=== PATIENT | male | born 1945 | race Caucasian/White ===

== ENCOUNTER 2017-12-25 20:44 | Inpatient (IN) | payer OTHER ==
--- NOTE | 2017-12-25 20:47 | PDOC ---
History of Present Illness - General History Source: Patient Exam Limitations: No Limitations - History of Present Illness Initial Comments: 12/25/17 21:13 The patient is a 72 year old male, with a significant past medical history of COPD(prescribed Spiriva and Advair, but non compliant) and silent NM, who presents to the emergency department with shortness of breath since yesterday evening. The patient reports associated cough productive of green sputum and wheezing, but denies any fever, chills, rhinorrhea, nasal congestion or sore throat. Patient reports his shortness of breath is worsened with exertion, but states this is part of his baseline. Patient reports he has never had a Nebulizer or needed steroids for his COPD flare ups. Patient denies any chest pain, diaphoresis, or palpitations. He denies any abdominal pain, nausea, or vomiting. He denies any recent travel or sick contacts. Allergies: Levofloxacin Past Surgical History: Social History: Current everyday smoker(50 years). Former ETOH abuse (Quit October 2017). No recreational drug use. PCP: Dr. 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 Ordonez <Abril Rolle - Last Filed: 12/25/17 21:14> <Federica De La Cruz - Last Filed: 12/26/17 04:40> - General Chief Complaint: Shortness of Breath Stated Complaint: SHORT OF BREATH Time Seen by Provider: 12/25/17 20:46 Past History <Abril Rolle - Last Filed: 12/25/17 21:14> <Federica De La Cruz - Last Filed: 12/26/17 04:40> - Past Medical History Allergies/Adverse Reactions: Allergies Allergy/AdvReac Type Severity Reaction Status Date / Time levofloxacin [From Levaquin] Allergy Unknown Verified 12/25/17 20:51 Home Medications: Ambulatory Orders Amlodipine Besylate [Norvasc -] 5 mg PO DAILY 12/25/17 Carvedilol Phosphate [Coreg Cr -] 40 mg PO DAILY 12/25/17 Fluticasone/Salmeterol [Advair 250-50 Diskus] 1 each IH ONCE 12/25/17 Pravastatin Sodium [Pravachol] 40 mg PO DAILY 12/25/17 Tiotropium [place] [Spiriva] 1 inh IH DAILY 12/25/17 Valsartan 320 mg PO DAILY 12/25/17 Review of Systems - Review of Systems Able to Perform ROS?: Yes Comments:: 12/25/17 21:13 CONSTITUTIONAL: Absent: fever, no chills, no fatigue EYES: Absent: visual changes ENT: Absent: ear pain, no sore throat CARDIOVASCULAR: Absent: chest pain, no palpitations RESPIRATORY: Present: cough productive of green sputum, shortness of breath, dyspnea on exertion, wheezing GI: Absent: abdominal pain, no nausea, no vomiting, no constipation, no diarrhea GENITOURINARY: Absent: dysuria, no frequency, no hematuria MUSKULOSKELETAL: Absent: back pain, no arthralgia, no myalgia SKIN: Absent: rash NEURO: Absent: headache <Rolle,Giomilsy - Last Filed: 12/25/17 21:14> *Physical Exam - Vital Signs Last Vital Signs Temp Pulse Resp BP Pulse Ox 98.8 F 105 H 30 H 130/72 88 L 12/25/17 20:45 12/25/17 20:45 12/25/17 20:45 12/25/17 20:45 12/25/17 20:45 - Physical Exam Comments: 12/25/17 21:27 GENERAL: The patient is awake, alert, and fully oriented, in no acute distress. HEAD: Scattered erythema and telangiectasia of bilateral cheeks and nasal surface. No signs of trauma. EYES: Pupils equal, round and reactive to light, extraocular movements intact, sclera anicteric, conjunctiva clear with no pallor. ENT: Ears normal, nares patent, oropharynx clear without exudates. Moist mucous membranes. NECK: Normal range of motion, supple without lymphadenopathy, JVD, or masses. LUNGS :Expiratory wheezing scattered on the left and diffuse on the right, with fine ronchi at the right base. HEART: Regular rate and rhythm, normal S1 and S2 without murmur or rub. ABDOMEN: Soft/nontender/nondistended. BS wnl. No guarding or rebound. No palpable masses. No hepatosplenomegaly. EXTREMITIES: Clubbing and mild cyanosis. Normal range of motion, no edema. No cords, erythema, or tenderness. NEUROLOGICAL: Cranial nerves II through XII grossly intact. Normal speech, normal gait. PSYCH: Normal mood, normal affect. SKIN: Warm, Dry, normal turgor, no rashes or lesions noted. <Rolle,Giomilsy - Last Filed: 12/25/17 21:14> ED Treatment Course - LABORATORY CBC & Chemistry Diagram: 12/25/17 21:15 12/25/17 21:25 <Federica De La Cruz - Last Filed: 12/26/17 04:40> Progress Note - Progress Note Progress Note: Documentation has been prepared under my direction and personally reviewed by me in its entirety. I attest that this documented accurately reflects all work, treatment, procedures and medical decision making performed by me. <Federica De La Cruz - Last Filed: 12/26/17 04:40> Medical Decision Making - Medical Decision Making 12/25/17 22:27 As noted above, this 72-year-old man with a history of COPD but noncompliant with medications and currently still smoking half pack of cigarettes per day presents with 1 day history of cough productive of purulent sputum and increased shortness of breath. Patient also had a history of daily alcohol intake that he stopped 2 months ago on the advice of his PMD (Dr. Kiser) Exam as noted with pulse oximetry of 88% on room air increasing to 92% on 2 L nasal cannula. Workup reveals mild increase in white blood cell count of 12,300 with neutrophil predominance. Patient has mild hyponatremia (noted before by Dr. Kiser according to the patient). BUN is 20 with a creatinine of 1.0. INR is elevated at 1.4. Troponin is borderline high at 0.06 12-lead electrocardiogram shows normal sinus rhythm at 83 beats per minute; intervals, wave forms and axis are all normal. No evidence of acute ST or T- wave abnormalities Portable chest x-ray shows evidence of COPD but no clear infiltrates/effusions/ masses Clinical presentation most consistent with exacerbation of COPD, possible early pneumonia. Patient given DuoNeb treatment, Solu-Medrol 125 mg IV, Rocephin 1 g and azithromycin 500 mg. Patient feels somewhat less short of breath after DuoNeb treatment Patient admitted to [facility] <Federica De La Cruz - Last Filed: 12/26/17 04:40> *DC/Admit/Observation/Transfer - Attestations Scribe Attestion: 12/25/17 21:14 Documentation prepared by Abril Rolle, acting as medical support specialist for Federica De La Cruz MD. <Abril Rolle - Last Filed: 12/25/17 21:14> - Discharge Dispostion Admit: Yes <Federica De La Cruz - Last Filed: 12/26/17 04:40> Diagnosis at time of Disposition: COPD with acute exacerbation - Discharge Dispostion Condition at time of disposition: Fair
[2017-12-25] MEDS ORDERED: ALBUTEROL SO4 2.5/IPRATROPIUM 0.5 INH SOL 3 ML VIAL.NEB. NEB ONE ×3 (21:02→23:35)
[2017-12-25] MEDS ORDERED: methylPREDNISolone NA SUCC 125 MG/2 ML VIAL IVPB ONE (21:43)
[2017-12-25] MEDS ORDERED: methylPREDNISolone NA SUCC 125 MG/2 ML VIAL ONE (21:50)
[2017-12-25 21:51] LABS: MEAN PLT VOLUME 7.7 fl (7.5-11.1); RBC 4.73 M/mm3 (4.00-5.60)
[2017-12-25 21:53] LABS: URINE APPEARANCE Clear; URINE BILIRUBIN 1+ (NEGATIVE); URINE GLUCOSE (UA) Negative (NEGATIVE); URINE KETONE Negative (NEGATIVE); URINE LEUK ESTERASE Negative (NEGATIVE); URINE NITRITE Negative (NEGATIVE)
[2017-12-25 21:58] LABS: URINE BLOOD Trace-intact (NEGATIVE); URINE COLOR YELLOW; URINE PROTEIN 2+ (NEGATIVE)
[2017-12-25 21:58] LABS: BASO % 0.2 % (0-2.0); EOS % 0.1 % (0-4.5); HEMATOCRIT 40.7 % (35.4-49); HEMOGLOBIN 13.6 GM/dl (11.7-16.9); LYMPH % 8.2 % (8-40); MCH 28.7 pg (25.7-33.7); MCHC 33.3 g/dl (32.0-35.9); MEAN CELL VOLUME 86.1 fl (80-96); MONO % 7.2 % (3.8-10.2); NEUT % 84.3 % (42.8-82.8); PLATELET COUNT 188 K/MM3 (134-434); RDW 12.4 % (11.9-15.9); WHITE BLOOD COUNT 12.3 K/mm3 (4.0-10.8)
[2017-12-25 22:01] LABS: INR 1.41 (0.82-1.09); PROTHROMBIN TIME (PATIENT) 15.7 SEC (10.2-13.0)
[2017-12-25 22:04] LABS: ALBUMIN 3.3 g/dl (3.5-5.0); ALK PHOS 51 U/L (32-92); ANION GAP 9 (8-16); BLOOD UREA NITROGEN 20 mg/dl (7-18); CALCIUM 8.4 mg/dl (8.4-10.2); CHLORIDE 92 mmol/L (98-107); CO2 26 mmol/L (22-28); GLUCOSE,RANDOM 96 mg/dl (74-106); POTASSIUM 3.7 mmol/L (3.5-5.1); SGOT/AST 35 U/L (10-42); SGPT/ALT 18 U/L (10-40); SODIUM 127 mmol/L (136-145); TOT PROT 6.8 g/dl (6.4-8.3)
[2017-12-25 22:18] LABS: BILIRUBIN,TOTAL 0.6 mg/dl (0.2-1.0)
[2017-12-25] MEDS ORDERED: CEFTRIAXONE 1 GM in DEXTROSE 5%-WATER - 50 ML IVPB ONE (22:19)
[2017-12-25] MEDS ORDERED: AZITHROMYCIN IVPB 500 MG in DEXTROSE 5%-WATER - 250 ML IVPB ONE (22:21)
[2017-12-25] MEDS ORDERED: cefTRIAXone SODIUM 1 GM VIAL ONE (22:26)
[2017-12-25] MEDS ORDERED: AZITHROMYCIN 500 MG VIAL IVPB ONE (22:26)
[2017-12-25 22:28] LABS: AMORP URATES FEW /hpf (NONE SEEN)
[2017-12-25 22:29] LABS: URINE CASTS FINELY GRANULAR 0-2 /hpf; WHITE BLOOD CELL CAST 0-1 /lpf
[2017-12-25] MEDS ORDERED: ACETAMINOPHEN 500 MG TABLET (FP) PO PRN (23:27)
[2017-12-25] MEDS ORDERED: ONDANSETRON 8 MG TABLET (FP) PO PRN (23:27)
[2017-12-25] MEDS: ALBUTEROL SO4 2.5/IPRATROPIUM 0.5 INH SOL 3 ML VIAL.NEB. NEB SCH (23:35)
--- NOTE | 2017-12-25 23:40 | HP ---
Admitting History and Physical - Admission Chief Complaint: cough, sob History of Present Illness: 72 yo M w hx of copd(non complaint w Rx), "silent Mi", active smoker, etoh abuse , hyponatremia HTN, who presents to the ER for sudden onset of cam, cough x 1 day. he reports progressive worsening of symptoms which prompted er visit. He reports prod cough with greenish sputum. he reports sob w/ exertion. he denies any associated cp, heart palps, nausea, vomiting, diarrhea, chills, fevers, constipation, jaw pain, leg edema. he denies prolonged immobilization. Rest of ros neg except for HPI PMH/PSh: As per HPI social: 1/2 PPD smoker. Former alcohol abuse. Denies recreational drugs Famhx: NM Prob list HTN copd hyponatremia nicotine dependence Leukocytosis a/p- 72 yo M w hx of copd(non complaint w Rx), "silent Mi", active smoker, etoh abuse, hyponatremia HTN, who presents to the ER for sudden onset of cam, cough x 1 day. 1. Sob/ cough, ? COPD exc ddx: PNA/bronchitis/ACS/CHF: CXR w/out evidence of PNA by my eye. EKG no NADEEN/STD, 1st trop 0.06. Started on CTX, and Azithromycin, supp O2 and steroids. Cont nebs/ABX/supp O2 / steroids. Trend trop, cardiac monitoring, obtain BNP, Pulmonary consult. 2. Hyponatremia: Does not appear fluid overloaded on exam Monitor BMP. Check serum/urine osm, TSH. 3. HTN: Cont home meds 4. Leukocytosis possibly stress induced: Monitor CBC 5. Lactic acidosis in setting of probable hypoxia r/t copd exc: Recheck labs. 6. Hypoxia in setting of probable copd exc: ~88% o2 in ER, but improved to 90s after supplemental oxygen via 2L 7. Nicotine dependence: counseled on cessation 8. Hyperlipidemia: Cont Statin DVT prophy scd, oob, lovenox SQ FEN Low sodium diet Dispo- Requires > 2Midnight stay for probable Copd exc History Source: Patient Limitations to Obtaining History: No Limitations - Smoking History Smoking history: Current every day smoker Aproximately how many cigarettes per day: 10 - Alcohol/Substance Use Hx Alcohol Use: Yes Home Medications - Allergies Allergies/Adverse Reactions: Allergies Allergy/AdvReac Type Severity Reaction Status Date / Time levofloxacin [From Levaquin] Allergy Unknown Verified 12/25/17 20:51 - Home Medications Home Medications: Ambulatory Orders Amlodipine Besylate [Norvasc -] 5 mg PO DAILY 12/25/17 Carvedilol Phosphate [Coreg Cr -] 40 mg PO DAILY 12/25/17 Fluticasone/Salmeterol [Advair 250-50 Diskus] 1 each IH ONCE 12/25/17 Pravastatin Sodium [Pravachol] 40 mg PO DAILY 12/25/17 Tiotropium [place] [Spiriva] 1 inh IH DAILY 12/25/17 Valsartan 320 mg PO DAILY 12/25/17 Physical Examination Vital Signs: Vital Signs Temperature 98.8 F 12/25/17 20:45 Pulse Rate 82 12/25/17 21:54 Respiratory Rate 28 H 12/25/17 21:55 Blood Pressure 126/80 12/25/17 21:45 O2 Sat by Pulse Oximetry (%) 93 L 12/25/17 21:55 Constitutional: Yes: Well Nourished, No Distress, Calm. No: Anxious, [place], Cachectic Eyes: Yes: WNL, Conjunctiva Clear, EOM Intact, Cataracts, PERRL, Sclera Icterus HENT: Yes: WNL, Atraumatic, Normocephalic, Nasal Congestion. No: Drooling, Epistaxis Neck: Yes: WNL, Supple, Trachea Midline. No: Lymphadenopathy, Rigid Cardiovascular: Yes: WNL, Regular Rate and Rhythm, S1, S2. No: Bradycardia, Tachycardia Respiratory: Yes: WNL, Regular, CTA Bilaterally, Cough. No: Accessory Muscle Use, Bradypnea, Samir-Adams, Diminished, Dullness Gastrointestinal: Yes: WNL, Normal Bowel Sounds, Soft. No: Abdomen, Obese, Distention, Hematemesis, Hyperactive Bowel Sounds ...Rectal Exam: Yes: Deferred Renal/: Yes: CVA Tenderness - Left Musculoskeletal: No: Back Pain, Joint Stiffness Extremities: No: Amputation, Calf Tenderness, Cold, Cool Edema: No Integumentary: No: Bruising, Erythema, Jaundice Neurological: Yes: WNL, Alert, Oriented, Cran Nerves II-XII Intact. No: Ataxia , Dysarthria, Facial Droop, Lethargy ...Motor Strength: WNL Psychiatric: Yes: WNL, Alert, Oriented. No: Agitated Labs: CBC, BMP 12/25/17 21:15 12/25/17 21:25 Visit type - Emergency Visit Emergency Visit: Yes ED Registration Date: 12/25/17 Care time: The patient presented to the Emergency Department on the above date and was hospitalized for further evaluation of their emergent condition. - New Patient This patient is new to me today: Yes Date on this admission: 12/27/17 - Critical Care Critical Care patient: No Hospitalist Screening - Colonoscopy Questionnaire Colonoscopy Questionnaire: Colonoscopy Questionnaire - Patient: 50 - 75 years old and never had a screening colonoscopy: Yes History of colon or rectal polyps, or CA: Unknown History of IBD, Crohn's disease or UC: No History of abdominal radiation therapy as a child: Unknown - Relative: 1 with colon or rectal CA, or polyps at age 60 or younger: Unknown Colon or rectal CA diagnosed at age 45 or younger: Unknown Multiple relatives with colon or rectal CA: Unknown - Outcome: Screening Result: Positive Screen
[2017-12-26 01:06] VITALS: BMI 18.0
[2017-12-26] MEDS: methylPREDNISolone NA SUCC 40 MG/1 ML VIAL IVPUSH SCH ×2 (02:59→08:17)
[2017-12-26] MEDS: ALBUTEROL SO4 2.5/IPRATROPIUM 0.5 INH SOL 3 ML VIAL.NEB. NEB SCH ×5 (03:00→19:30)
[2017-12-26 08:09] LABS: N-TERMINAL BNP 2846.5 pg/ml (5-125)
[2017-12-26 09:02] LABS: HEMATOCRIT 36.5 % (35.4-49); HEMOGLOBIN 12.4 GM/dl (11.7-16.9); MCH 29.4 pg (25.7-33.7); MCHC 33.9 g/dl (32.0-35.9); MEAN CELL VOLUME 86.7 fl (80-96); MEAN PLT VOLUME 7.5 fl (7.5-11.1); PLATELET COUNT 189 K/MM3 (134-434); RBC 4.21 M/mm3 (4.00-5.60); RDW 12.3 % (11.9-15.9); WHITE BLOOD COUNT 10.8 K/mm3 (4.0-10.8)
[2017-12-26 09:13] LABS: ALBUMIN 2.9 g/dl (3.5-5.0); ALK PHOS 47 U/L (32-92); ANION GAP 7 (8-16); BLOOD UREA NITROGEN 22 mg/dl (7-18); CHLORIDE 95 mmol/L (98-107); CO2 26 mmol/L (22-28); CREATININE 0.8 mg/dl (0.6-1.3); GLUCOSE,RANDOM 131 mg/dl (74-106); POTASSIUM 3.7 mmol/L (3.5-5.1); SGOT/AST 27 U/L (10-42); SGPT/ALT 17 U/L (10-40); SODIUM 128 mmol/L (136-145); TOT PROT 5.8 g/dl (6.4-8.3)
[2017-12-26 09:38] LABS: BILIRUBIN,TOTAL 0.6 mg/dl (0.2-1.0)
[2017-12-26] MEDS ORDERED: AZITHROMYCIN IVPB 500 MG in DEXTROSE 5%-WATER - 250 ML IVPB SCH (10:00)
[2017-12-26] MEDS ORDERED: CEFTRIAXONE 1 GM in DEXTROSE 5%-WATER - 50 ML IVPB SCH (10:00)
--- NOTE | 2017-12-26 10:32 | PN ---
Physical Exam: SUBJECTIVE: Patient seen and examined this morning. He states he is feeling much better then yesterday. He denies SOB, CP. OBJECTIVE: Vital Signs Period Temp Pulse Resp BP Sys/Pepper Pulse Ox Last 24 Hr 97.7 F-98.8 F 78-105 20-30 109-131/60-80 2-96 GENERAL: The patient is awake, alert, and fully oriented, in no acute distress. HEAD: Normal with no signs of trauma. NECK: Trachea midline, full range of motion, supple. LUNGS: Breath sounds equal, course rhonchi when coughing, no wheezes, no crackles, no accessory muscle use. HEART: Regular rate and rhythm, S1, S2 without murmur, rub or gallop. ABDOMEN: Soft, nontender, nondistended, normoactive bowel sounds, no guarding, no rebound, no hepatosplenomegaly, no masses. EXTREMITIES: 2+ pulses, warm, well-perfused, no edema. NEUROLOGICAL: Cranial nerves II through XII grossly intact. Normal speech, gait not observed. PSYCH: Normal mood, normal affect. SKIN: Warm, dry, normal for pt age turgor, no rashes or lesions noted Laboratory Results - last 24 hr 12/25/17 12/25/17 12/25/17 21:15 21:15 21:15 WBC 12.3 H RBC 4.73 Hgb 13.6 Hct 40.7 MCV 86.1 MCH 28.7 MCHC 33.3 RDW 12.4 Plt Count 188 MPV 7.7 Neutrophils % 84.3 H Lymphocytes % 8.2 Monocytes % 7.2 Eosinophils % 0.1 Basophils % 0.2 PT with INR 15.7 H INR 1.41 H Sodium Potassium Chloride Carbon Dioxide Anion Gap BUN Creatinine Creat Clearance w eGFR Random Glucose Serum Osmolality Lactic Acid Calcium Total Bilirubin AST ALT Alkaline Phosphatase Creatine Kinase Troponin I 0.06 B-Natriuretic Peptide Total Protein Albumin Urine Color Urine Appearance Urine pH Ur Specific [place] Urine Protein Urine Glucose (UA) Urine Ketones Urine Blood Urine Nitrite Urine Bilirubin Urine Urobilinogen Ur Leukocyte Esterase Urine RBC Urine WBC Ur Epithelial Cells Amorphous Urates Urine Casts Hyaline Casts WBC Casts 12/25/17 12/25/17 12/25/17 21:15 21:25 21:43 WBC RBC Hgb Hct MCV MCH MCHC RDW Plt Count MPV Neutrophils % Lymphocytes % Monocytes % Eosinophils % Basophils % PT with INR INR Sodium 127 L Potassium 3.7 Chloride 92 L Carbon Dioxide 26 Anion Gap 9 BUN 20 H Creatinine 1.0 Creat Clearance w eGFR > 60 Random Glucose 96 Serum Osmolality Lactic Acid 2.1 H Calcium 8.4 Total Bilirubin 0.6 AST 35 ALT 18 Alkaline Phosphatase 51 Creatine Kinase 117 Troponin I B-Natriuretic Peptide Total Protein 6.8 Albumin 3.3 L Urine Color Yellow Urine Appearance Clear Urine pH 5.0 Ur Specific [place] >= 1.030 H Urine Protein 2+ H Urine Glucose (UA) Negative Urine Ketones Negative Urine Blood Trace-intact H Urine Nitrite Negative Urine Bilirubin 1+ H Urine Urobilinogen 1.0 Ur Leukocyte Esterase Negative Urine RBC 3-5 Urine WBC 4-6 Ur Epithelial Cells 3-5 Amorphous Urates Few Urine Casts Finely granular 0-2 Hyaline Casts 1-3 WBC Casts 0-1 12/26/17 12/26/17 12/26/17 02:45 06:30 07:46 WBC 10.8 RBC 4.21 Hgb 12.4 Hct 36.5 MCV 86.7 MCH 29.4 MCHC 33.9 RDW 12.3 Plt Count 189 MPV 7.5 Neutrophils % No Result Required. Lymphocytes % No Result Required. Monocytes % Eosinophils % Basophils % PT with INR INR Sodium 128 L Potassium 3.7 Chloride 95 L Carbon Dioxide 26 Anion Gap 7 L BUN 22 H Creatinine 0.8 Creat Clearance w eGFR > 60 Random Glucose 131 H D Serum Osmolality 274 L Lactic Acid Calcium 8.0 L Total Bilirubin 0.6 AST 27 D ALT 17 Alkaline Phosphatase 47 Creatine Kinase Troponin I 0.09 H B-Natriuretic Peptide 2846.50 H Total Protein 5.8 L Albumin 2.9 L Urine Color Urine Appearance Urine pH Ur Specific [place] Urine Protein Urine Glucose (UA) Urine Ketones Urine Blood Urine Nitrite Urine Bilirubin Urine Urobilinogen Ur Leukocyte Esterase Urine RBC Urine WBC Ur Epithelial Cells Amorphous Urates Urine Casts Hyaline Casts WBC Casts Active Medications Generic Name Dose Route Start Last Admin Trade Name Freq PRN Reason Stop Dose Admin Acetaminophen 500 mg 12/25/17 23:27 Tylenol - PO Q6H PRN PAIN LEVEL 1-5 Albuterol/Ipratropium 1 amp 12/25/17 23:30 12/26/17 08:17 Duoneb - NEB 1 amp Q4H ALLAN Administration Amlodipine Besylate 5 mg 12/26/17 10:00 Norvasc - PO DAILY ALLAN Atorvastatin Calcium 10 mg 12/26/17 22:00 Lipitor - PO HS ALLAN Carvedilol 40 mg 12/26/17 10:00 Coreg Cr - PO DAILY ALLAN Enoxaparin Sodium 40 mg 12/26/17 10:00 Lovenox - SQ DAILY ALLAN Azithromycin 500 mg/ Dextrose 250 mls @ 250 mls/hr 12/26/17 10:00 IVPB DAILY ALLAN Ceftriaxone Sodium 1 gm/ 50 mls @ 100 mls/hr 12/26/17 10:00 Dextrose IVPB DAILY ALLAN Methylprednisolone Sodium Succinate 40 mg 12/26/17 03:00 12/26/17 08:17 Solu-Medrol - IVPUSH 40 mg Q6H-IV ALLAN Administration Nicotine 21 mg 12/26/17 10:00 Nicoderm Patch - TD DAILY ALLAN Ondansetron HCl 8 mg 12/25/17 23:27 Zofran - PO Q8H PRN NAUSEA Tiotropium [place] 1 puff 12/26/17 10:00 Spiriva - IH DAILY ALLAN Valsartan 320 mg 12/26/17 10:00 Diovan - PO DAILY ALLAN ASSESSMENT/PLAN: This 72 yr old male + daily smoker, with c/o SOB, COPD excerbation upon admission to ER last evening has a finding of elevated trops overnight. 1. COPD -noncompliant with advair and spiriva at home -duonebs while in patient -smoking cessation discussion -nicotine patch ordered -pulse ox check, on 2 liters for sat 88 to 92% -solumedrol tapering -leukocytosis, treating empirically for ? PNA, azithromax, rocephin IV -Pulmonary consult called 2. FEN -low sodium diet -monitor daily labs -lovenox for DVT propx -pepcid for GI protection 3. HTN -continue home meds coreg, diovan, norvasc -monitor BP 4. Elevated troponins -noted elevated trops during cardiac w/u -consult to cardiology called -echo ordered -trend trops -EKG NSR without ST T wave abnormalities 5. Hyponatremia -strict I/O -no diuretics -restrict fluids -daily labs review -urine lytes to be followed Disposition: Inpatient admission for COPD excerbation, cardiac workup, hyponatremia Visit type - Emergency Visit Emergency Visit: Yes ED Registration Date: 12/26/17 Care time: The patient presented to the Emergency Department on the above date and was hospitalized for further evaluation of their emergent condition. - New Patient This patient is new to me today: Yes Date on this admission: 12/26/17 - Critical Care Critical Care patient: No - Discharge Referral Referred to [facility] No
[2017-12-26] MEDS: VALSARTAN 160 MG TABLET (UD) PO SCH (10:40)
[2017-12-26] MEDS: ENOXAPARIN NA (PORCINE) 40 MG/0.4 ML DISP.SYRIN SQ SCH (10:40)
[2017-12-26] MEDS: amLODIPine BESYLATE 5 MG TABLET (FP) PO SCH (10:40)
[2017-12-26] MEDS: NICOTINE 21 MG/24 HOURS TOPICAL PATCH TD SCH (10:41)
[2017-12-26] MEDS: TIOTROPIUM BROMIDE 18 MCG CAPSULES IH SCH (14:20)
[2017-12-26] MEDS: CARVEDILOL PHOSPHATE CR 40 MG CAPSULE (FP) PO SCH (14:20)
--- NOTE | 2017-12-26 16:08 | CON.CARD ---
Consult Consult Specialty:: Cardiology Reason for Consultation:: Positive troponin - History of Present Illness Chief Complaint: COPD Exacerbation History of Present Illness: This is a 72 yea old male with a PMH of COPD. He had a remote ME many years ago. He has a 50n pack year smoking history and continues to smoke. He presented with a severe COPD exacerbation after being non-compliant with medical therapy. His COPD improved with treatment and he was noted to have a minimal elevation of his troponin levels: 0.6, 0.9, 0.5. He has no chest pain. - Alcohol/Substance Use Hx Alcohol Use: Yes - Smoking History Smoking history: Current every day smoker Aproximately how many cigarettes per day: 10 Home Medications - Allergies Allergies/Adverse Reactions: Allergies Allergy/AdvReac Type Severity Reaction Status Date / Time levofloxacin [From Levaquin] Allergy Unknown Verified 12/25/17 20:51 - Home Medications Home Medications: Ambulatory Orders Amlodipine Besylate [Norvasc -] 5 mg PO DAILY 12/25/17 Carvedilol Phosphate [Coreg Cr -] 40 mg PO DAILY 12/25/17 Fluticasone/Salmeterol [Advair 250-50 Diskus] 1 each IH ONCE 12/25/17 Pravastatin Sodium [Pravachol] 40 mg PO DAILY 12/25/17 Tiotropium [place] [Spiriva] 1 inh IH DAILY 12/25/17 Valsartan 320 mg PO DAILY 12/25/17 Review of Systems Findings/Remarks: As per HPI Vital Signs: Vital Signs Temperature 98.2 F 12/26/17 14:16 Pulse Rate 91 H 12/26/17 14:16 Respiratory Rate 18 12/26/17 14:16 Blood Pressure 102/47 12/26/17 14:16 O2 Sat by Pulse Oximetry (%) 96 12/26/17 08:45 Constitutional: Yes: Thin HENT: Yes: WNL Neck: Yes: WNL Respiratory: Yes: Rhonchi (Minimal scattered rhonchi bilaterally) Cardiovascular: Yes: Regular Rate and Rhythm (NL S1S2, no MRHG) JVD: No Carotid Bruit: No Extremities: Yes: WNL Edema: No Neurological: Yes: Alert, Oriented (Non focal) - Other Data Labs, Other Data: CBC, BMP 12/26/17 07:46 12/26/17 06:30 INR, PTT INR 1.41 (0.82-1.09) H 12/25/17 21:15 Troponin, BNP 12/25/17 12/26/17 12/26/17 21:15 02:45 06:30 Troponin I 0.06 0.09 H 0.05 B-Natriuretic Peptide 2846.50 H Troponin, BNP 12/25/17 12/26/17 12/26/17 21:15 02:45 06:30 Troponin I 0.06 0.09 H 0.05 B-Natriuretic Peptide 2846.50 H Assessment/Plan Minimal troponin leak secondary to demand ischemia secondary to his COPD exacerbation. No evidence for an acute coronary syndrome. EKG without acute changes and no chest pain. Would opt for an outpatient stress test when he is over his COPD exacerbation. Would add Aspirin 81 mg to his regimen. Continue statin therapy and beta blockers HE NEEDS TO QUIT SMOKING!!!
[2017-12-26] MEDS: methylPREDNISolone NA SUCC 125 MG/2 ML VIAL IVPB SCH (19:30)
[2017-12-26] MEDS: ATORVASTATIN CA 10 MG TABLET (FP) PO SCH (21:28)
--- NOTE | 2017-12-26 21:59 | EKG ---
Test Reason : Blood Pressure : / mmHG Vent. Rate : 083 BPM Atrial Rate : 083 BPM P-R Int : 148 ms QRS Dur : 096 ms QT Int : 382 ms P-R-T Axes : 048 073 069 degrees QTc Int : 448 ms NORMAL SINUS RHYTHM NORMAL ECG WHEN COMPARED WITH ECG OF 19-AUG-2005 22:21, INCOMPLETE RIGHT BUNDLE BRANCH BLOCK IS NO LONGER PRESENT NONSPECIFIC T WAVE ABNORMALITY NO LONGER EVIDENT IN ANTERIOR LEADS Confirmed by SILVINA URIBE MD ([id number]) on 12/26/2017 9:59:06 PM Referred By: JACE Confirmed By:SILVINA URIBE MD
[2017-12-26 23:07] LABS: PLATELET ESTIMATE ADEQUATE
[2017-12-27] MEDS: methylPREDNISolone NA SUCC 125 MG/2 ML VIAL IVPB SCH ×3 (02:04→17:57)
[2017-12-27] MEDS: ALBUTEROL SO4 2.5/IPRATROPIUM 0.5 INH SOL 3 ML VIAL.NEB. NEB SCH ×3 (02:04→08:19)
[2017-12-27 08:19] LABS: HEMATOCRIT 38.8 % (35.4-49); HEMOGLOBIN 12.9 GM/dl (11.7-16.9); LYMPH % 7.2 % (8-40); MCHC 33.3 g/dl (32.0-35.9); MEAN CELL VOLUME 87.1 fl (80-96); MEAN PLT VOLUME 7.7 fl (7.5-11.1); MONO % 5.2 % (3.8-10.2); NEUT % 87.6 % (42.8-82.8); PLATELET COUNT 200 K/MM3 (134-434); RBC 4.46 M/mm3 (4.00-5.60); RDW 12.4 % (11.9-15.9); WHITE BLOOD COUNT 13.2 K/mm3 (4.0-10.8)
[2017-12-27 08:37] LABS: ALBUMIN 2.9 g/dl (3.5-5.0); ALK PHOS 43 U/L (32-92); ANION GAP 8 (8-16); BILIRUBIN,TOTAL 0.4 mg/dl (0.2-1.0); BLOOD UREA NITROGEN 27 mg/dl (7-18); CALCIUM 8.3 mg/dl (8.4-10.2); CHLORIDE 99 mmol/L (98-107); CO2 26 mmol/L (22-28); CREATININE 0.9 mg/dl (0.6-1.3); GLUCOSE,RANDOM 136 mg/dl (74-106); MAGNESIUM 2.1 mg/dL (1.8-2.4); PHOSPHOROUS 3.7 mg/dl (2.5-4.6); POTASSIUM 3.6 mmol/L (3.5-5.1); SGOT/AST 27 U/L (10-42); SGPT/ALT 16 U/L (10-40); SODIUM 133 mmol/L (136-145); TOT PROT 5.9 g/dl (6.4-8.3)
[2017-12-27] MEDS ORDERED: PT OWN MED DRAWER 7, Y5N ONE ×4 (09:02→21:32)
[2017-12-27] MEDS: AZITHROMYCIN IVPB 250 ML IVPB SCH (09:10)
[2017-12-27] MEDS: CARVEDILOL PHOSPHATE CR 40 MG CAPSULE (FP) PO SCH (09:10)
[2017-12-27] MEDS: CEFTRIAXONE 1 G/50 ML PREMIX 50 ML IVPB SCH (09:10)
[2017-12-27] MEDS: VALSARTAN 160 MG TABLET (UD) PO SCH (09:11)
[2017-12-27] MEDS: amLODIPine BESYLATE 5 MG TABLET (FP) PO SCH (09:11)
[2017-12-27] MEDS: ENOXAPARIN NA (PORCINE) 40 MG/0.4 ML DISP.SYRIN SQ SCH (09:11)
[2017-12-27] MEDS: NICOTINE 21 MG/24 HOURS TOPICAL PATCH TD SCH (09:11)
[2017-12-27] MEDS: TIOTROPIUM BROMIDE 18 MCG CAPSULES IH SCH (09:12)
--- NOTE | 2017-12-27 10:42 | PN ---
Physical Exam: SUBJECTIVE: Patient seen and examined, resting comfortably in bed, moist cough is noted. OBJECTIVE: Patient is a 72 y/o male with a past medical history of copd, hypertension, and tobacco smoker. Patient was admitted from the emergency department for copd exacerbation. Vital Signs Period Temp Pulse Resp BP Sys/Pepper Pulse Ox Last 24 Hr 98.1 F-98.4 F 72-91 18-20 102-114/44-57 95-96 GENERAL: The patient is awake, alert, and fully oriented, in no acute distress. HEAD: Normal with no signs of trauma. EYES: PERRL, extraocular movements intact, sclera anicteric, conjunctiva clear. No ptosis. ENT: Ears normal, nares patent, oropharynx clear without exudates, moist mucous membranes. NECK: Trachea midline, full range of motion, supple. LUNGS: Breath sounds equal, mild inspiratory wheeze to base, clear to apexes, moist cough noted, no crackles, no accessory muscle use. HEART: Regular rate and rhythm, S1, S2 without murmur, rub or gallop. ABDOMEN: Soft, nontender, nondistended, normoactive bowel sounds, no guarding, no rebound, no hepatosplenomegaly, no masses. EXTREMITIES: 2+ pulses, warm, well-perfused, no edema. NEUROLOGICAL: Cranial nerves II through XII grossly intact. Normal speech, gait not observed. PSYCH: Normal mood, normal affect. SKIN: Warm, dry, normal turgor, no rashes or lesions noted Laboratory Results - last 24 hr 12/26/17 12/26/17 12/26/17 06:00 06:30 06:30 WBC RBC Hgb Hct MCV MCH MCHC RDW Plt Count MPV Neutrophils % Neutrophils % (Manual) Band Neutrophils % Lymphocytes % Lymphocytes % (Manual) Monocytes % Eosinophils % Basophils % Platelet Estimate Sodium Potassium Chloride Carbon Dioxide Anion Gap BUN Creatinine Creat Clearance w eGFR Random Glucose Lactic Acid 0.9 Calcium Phosphorus Magnesium Total Bilirubin AST ALT Alkaline Phosphatase Creatine Kinase Troponin I 0.05 Total Protein Albumin TSH 0.44 12/26/17 12/27/17 12/27/17 07:46 07:30 07:30 WBC 13.2 H RBC 4.46 Hgb 12.9 Hct 38.8 MCV 87.1 MCH 29.0 MCHC 33.3 RDW 12.4 Plt Count 200 MPV 7.7 Neutrophils % 87.6 H Neutrophils % (Manual) 89.0 H Band Neutrophils % 8.0 Lymphocytes % 7.2 L Lymphocytes % (Manual) 3.0 L Monocytes % 5.2 Eosinophils % 0.0 D Basophils % 0.0 Platelet Estimate Adequate Sodium 133 L Potassium 3.6 Chloride 99 Carbon Dioxide 26 Anion Gap 8 BUN 27 H D Creatinine 0.9 Creat Clearance w eGFR > 60 Random Glucose 136 H Lactic Acid Calcium 8.3 L Phosphorus 3.7 Magnesium 2.1 Total Bilirubin 0.4 D AST 27 ALT 16 Alkaline Phosphatase 43 Creatine Kinase 86 Troponin I Total Protein 5.9 L Albumin 2.9 L TSH 12/27/17 07:30 WBC RBC Hgb Hct MCV MCH MCHC RDW Plt Count MPV Neutrophils % Neutrophils % (Manual) Band Neutrophils % Lymphocytes % Lymphocytes % (Manual) Monocytes % Eosinophils % Basophils % Platelet Estimate Sodium Potassium Chloride Carbon Dioxide Anion Gap BUN Creatinine Creat Clearance w eGFR Random Glucose Lactic Acid Calcium Phosphorus Magnesium Total Bilirubin AST ALT Alkaline Phosphatase Creatine Kinase Troponin I < 0.03 D Total Protein Albumin TSH Active Medications Generic Name Dose Route Start Last Admin Trade Name Freq PRN Reason Stop Dose Admin Acetaminophen 500 mg 12/25/17 23:27 Tylenol - PO Q6H PRN PAIN LEVEL 1-5 Albuterol/Ipratropium 1 amp 12/25/17 23:30 12/27/17 08:19 Duoneb - NEB 1 amp Q4H ALLAN Administration Amlodipine Besylate 5 mg 12/26/17 10:00 12/27/17 09:11 Norvasc - PO 5 mg DAILY ALLAN Administration Atorvastatin Calcium 10 mg 12/26/17 22:00 12/26/17 21:28 Lipitor - PO 10 mg HS ALLAN Administration Carvedilol 40 mg 12/26/17 10:00 12/27/17 09:10 Coreg Cr - PO 40 mg DAILY ALLAN Administration Enoxaparin Sodium 40 mg 12/26/17 10:00 12/27/17 09:11 Lovenox - SQ 40 mg DAILY ALLAN Administration CEFTRIAXONE 1 G/50 ML PREMIX 50 mls @ 100 mls/hr 12/26/17 12:05 12/27/17 09: 10 Ceftriaxone 1 Gm-D5w Bag IVPB 100 mls/hr DAILY ALLAN Administration Azithromycin 250 mls @ 250 mls/hr 12/26/17 12:08 12/27/17 09:10 Zithromax 500mg Ivpb (Pre-Docked) IVPB 250 mls/hr DAILY ALLAN Administration Methylprednisolone Sodium Succinate 40 mg 12/26/17 19:30 12/27/17 09:11 Solu-Medrol - IVPB 40 mg Q8H-IV ALLAN Administration Nicotine 21 mg 12/26/17 10:00 12/27/17 09:11 Nicoderm Patch - TD 21 mg DAILY ALLAN Administration Ondansetron HCl 8 mg 12/25/17 23:27 Zofran - PO Q8H PRN NAUSEA Tiotropium [place] 1 puff 12/26/17 10:00 12/27/17 09:12 Spiriva - IH 1 each DAILY ALLAN Administration Valsartan 320 mg 12/26/17 10:00 12/27/17 09:11 Diovan - PO 320 mg DAILY ALLAN Administration Microbiology 12/25/17 21:25 Blood - Peripheral Venous Blood Culture - Preliminary NO GROWTH OBTAINED AFTER 24 HOURS, INCUBATION TO CONTINUE FOR 4 DAYS. 12/25/17 21:15 Blood - Peripheral Venous Blood Culture - Preliminary NO GROWTH OBTAINED AFTER 24 HOURS, INCUBATION TO CONTINUE FOR 4 DAYS. IMAGING chest xray: no acute pathology, hyperinflation ct of chest: large lobulated left infrahilar mass strongly suspicous for malignancy, moderately severe copd, thyromegly ASSESSMENT/PLAN: 1. pulm left lung mass - ct of chest, reviewed with patient and son, all questions answered - appreciate oncology input, Dr Srivastava - pending needle biopsy COPD excerbation - continue solumedrol 40mg tid - start symbicort, continue spirva, with prn combivent nebulizers - keep spo2 above 92% with supplemental o2 2) cardiovascular hypertension - continue home meds coreg, diovan, norvasc - b/p at goal elevate troponin - pending echo - cardiology consulted and followed - troponin downtrended FEN hyponatremia - uptrending, close monitoring low sodium diet PPX - lovenox - pepcid - scd/oob Disposition: Inpatient admission Visit type - Emergency Visit Emergency Visit: Yes ED Registration Date: 12/25/17 Care time: The patient presented to the Emergency Department on the above date and was hospitalized for further evaluation of their emergent condition. - New Patient This patient is new to me today: Yes Date on this admission: 12/27/17 - Critical Care Critical Care patient: No - Discharge Referral Referred to [facility] Med P.C.: No
[2017-12-27] MEDS: BUDESONIDE/FORMETEROL FUMARATE 80/4.5 mcg INHALER IH SCH ×2 (11:30→21:37)
[2017-12-27] MEDS: ASPIRIN 81 MG CHEWABLE TABLETS PO SCH (11:38)
[2017-12-27] MEDS ORDERED: methylPREDNISolone NA SUCC 125 MG/2 ML VIAL IVPB SCH ×2 (14:00→19:30)
[2017-12-27] MEDS: ALBUTEROL SO4 2.5/IPRATROPIUM 0.5 INH SOL 3 ML VIAL.NEB. NEB PRN ×2 (17:58→21:36)
--- NOTE | 2017-12-27 18:15 | CON.PULM ---
Consult Consult Specialty:: PULMONARY Referred by:: ARIELLE Reason for Consultation:: COPD/LUNG MASS - History of Present Illness Chief Complaint: COUGH/SOB/MUCOUS PRODUCTION History of Present Illness: The patient is a 72 year old male, with a significant past medical history of COPD(prescribed Spiriva and Advair, but non compliant) and silent ND, who presents to the emergency department with shortness of breath since yesterday evening. The patient reports associated cough productive of green sputum and wheezing, but denies any fever, chills, rhinorrhea, nasal congestion or sore throat or hemoptysis. Patient reports his shortness of breath is worsened with exertion, but states this is part of his baseline. Patient reports he has never had a Nebulizer or needed steroids for his COPD flare ups. Patient denies any chest pain, diaphoresis, or palpitations. He denies any abdominal pain, nausea, or vomiting. He denies any recent travel or sick contacts. 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 He also reports having a normal pet scan in past but can't remember when. His current ct chest reveals a large central hilar mass. The mass was not present on patient's last cat scan dated 2015. Patient did not follow up for 2017. 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 No: O2 Dependent, Pneumonia Gastrointestinal: No: Ascites Hepatobiliary: No: Cirrhosis Renal/: No: Renal Failure Heme/Onc: No: Anemia Infectious Disease: No: AIDS Psych: Yes: Addictions Rheumatology: No: Fibromyalgia ENT: No: Allergic Rhinitis Endocrine: No: Diabetes Mellitus - Past Surgical History Additional Surgical History: no significant previous surgery - Alcohol/Substance Use Hx Alcohol Use: Yes - Smoking History Smoking history: Current every day smoker Have you smoked in the past 12 months: Yes Aproximately how many cigarettes per day: 10 - Social History ADL: Independent Place of : [facility] History of Recent Travel: No Home Medications - Allergies Allergies/Adverse Reactions: Allergies Allergy/AdvReac Type Severity Reaction Status Date / Time levofloxacin [From Levaquin] Allergy Unknown Verified 12/25/17 20:51 - Home Medications Home Medications: Ambulatory Orders Amlodipine Besylate [Norvasc -] 5 mg PO DAILY 12/25/17 Carvedilol Phosphate [Coreg Cr -] 40 mg PO DAILY 12/25/17 Fluticasone/Salmeterol [Advair 250-50 Diskus] 1 each IH ONCE 12/25/17 Pravastatin Sodium [Pravachol] 40 mg PO DAILY 12/25/17 Tiotropium [place] [Spiriva] 1 inh IH DAILY 12/25/17 Valsartan 320 mg PO DAILY 12/25/17 Family Disease History - Family Disease History Family History: Unremarkable Review of Systems - Review of Systems Constitutional: reports: Lethargy, Loss of Appetite, Unintentional Wgt. Loss, Weakness Eyes: denies: Blind Spots HENT: denies: Difficult Swallowing Neck: denies: Decreased ROM Cardiovascular: reports: Shortness of Breath. denies: Chest Pain Respiratory: reports: Cough, Exercise Intolerance, SOB, SOB on Exertion, Wheezing. denies: Hemoptysis Gastrointestinal: denies: Abdominal Pain Genitourinary: denies: Burning Physical Exam Vital Sings: Vital Signs Temperature 98.3 F 12/27/17 14:37 Pulse Rate 79 12/27/17 14:37 Respiratory Rate 19 12/27/17 14:37 Blood Pressure 137/59 12/27/17 14:37 O2 Sat by Pulse Oximetry (%) 93 L 12/27/17 14:37 Constitutional: Yes: Calm, Anxious Eyes: Yes: EOM Intact HENT: Yes: Normocephalic Neck: Yes: Trachea Midline Cardiovascular: Yes: Regular Rate and Rhythm Respiratory: Yes: Diminished ...Clubbing: No Gastrointestinal: Yes: Normal Bowel Sounds, Soft Renal/: No: Bladder Distention Breast(s): Yes: WNL Musculoskeletal: Yes: WNL Extremities: Yes: WNL Edema: No Integumentary: Yes: WNL Neurological: Yes: Alert Labs: CBC, BMP 12/27/17 07:30 12/27/17 07:30 rest reviewed Imaging - Results Chest X-ray: Report Reviewed, Image Reviewed Cat Scan: Report Reviewed, Image Reviewed Problem List - Problems (1) Lung mass Code(s): R91.8 - OTHER NONSPECIFIC ABNORMAL FINDING OF LUNG FIELD (2) HTN (hypertension) Code(s): I10 - ESSENTIAL (PRIMARY) HYPERTENSION (3) Hyperlipidemia Code(s): E78.5 - HYPERLIPIDEMIA, UNSPECIFIED Assessment/Plan LARGE RAPIDLY GROWING CENTRAL MASS FAVORS SMALL CELL LUNG CANCER ACUTE EXACERBATION COPD WITH BRONCHOSPASTIC COMPONENT WILL PRECLUDE A DIAGNOSTIC BIOPSY THIS ADMISSION SUGGEST:STEROIDS/BRONCHODILATORS/ANTIBIOTICS/CHECK PRE/POST AMB SPO2 CAN CONSIDER MRI WITH [facility] WHILE IN HOSPITAL PART OF STAGING W/U ONCE CLINICALLY STABLE WOULD PURSUE DIAGNOSTIC WORKUP OUTPATIENT Brooklynn INGRAM MD
--- NOTE | 2017-12-27 18:59 | CONSULT ---
Consult Consult Specialty:: oncology Referred by:: zack summers Reason for Consultation:: lung mass - History of Present Illness Chief Complaint: sob History of Present Illness: 72 yom w h/o COPD adm w acute onset sob 3d ago. Sxs improving w abx, supplemental O2. Underwent CT showing a L hilar mass. Hx noteworthy for cig smoker approx 75 pack-years and notes he quit during this hospitalization. Notes poor appetite over past 2-3u w approx 15# down. Denies HAs, focal weakness. 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 No: O2 Dependent, Pneumonia Gastrointestinal: No: Ascites Hepatobiliary: No: Cirrhosis Renal/: No: Renal Failure Infectious Disease: No: AIDS Psych: Yes: Addictions Rheumatology: No: Fibromyalgia ENT: No: Allergic Rhinitis Endocrine: No: Diabetes Mellitus - Past Surgical History Additional Surgical History: no significant previous surgery - Alcohol/Substance Use Hx Alcohol Use: Yes - Smoking History Smoking history: Current every day smoker Have you smoked in the past 12 months: Yes Aproximately how many cigarettes per day: 10 - Social History ADL: Independent History of Recent Travel: No Home Medications - Allergies Allergies/Adverse Reactions: Allergies Allergy/AdvReac Type Severity Reaction Status Date / Time levofloxacin [From Levaquin] Allergy Unknown Verified 12/25/17 20:51 - Home Medications Home Medications: Ambulatory Orders Amlodipine Besylate [Norvasc -] 5 mg PO DAILY 12/25/17 Carvedilol Phosphate [Coreg Cr -] 40 mg PO DAILY 12/25/17 Fluticasone/Salmeterol [Advair 250-50 Diskus] 1 each IH ONCE 12/25/17 Pravastatin Sodium [Pravachol] 40 mg PO DAILY 12/25/17 Tiotropium [place] [Spiriva] 1 inh IH DAILY 12/25/17 Valsartan 320 mg PO DAILY 12/25/17 Family Disease History - Family Disease History Family Disease History: CA: Father (lymphoma?), Brother (brain tumor) Review of Systems - Review of Systems Constitutional: reports: Loss of Appetite Respiratory: reports: SOB, SOB on Exertion, Wheezing Gastrointestinal: reports: No Symptoms Neurological: reports: No Symptoms Physical Exam Vital Signs: Vital Signs Temperature 98.3 F 12/27/17 14:37 Pulse Rate 79 12/27/17 14:37 Respiratory Rate 19 12/27/17 14:37 Blood Pressure 137/59 12/27/17 14:37 O2 Sat by Pulse Oximetry (%) 93 L 12/27/17 14:37 Constitutional: Yes: No Distress, Calm Eyes: Yes: WNL HENT: Yes: Atraumatic, Normocephalic Neck: Yes: Supple Cardiovascular: Yes: Regular Rate and Rhythm, Other (dec BS L, R wheezes) Gastrointestinal: Yes: WNL, Normal Bowel Sounds, Soft Musculoskeletal: Yes: WNL Extremities: Yes: WNL Edema: No Integumentary: Yes: WNL Neurological: Yes: WNL, Alert, Oriented ...Motor Strength: WNL Psychiatric: Yes: Alert, Oriented Labs: CBC, BMP 12/27/17 07:30 12/27/17 07:30 Assessment/Plan 72 yom adm w mild hypoxia, COPD exacerbation, and imaging concerning for lung cancer w large L hilar mass would pursue w/u w bx (Dr Lee arranging for bronch as outpt) PET scan MRI brain +/- Pt will f/u in office - info provided
[2017-12-27] MEDS: ATORVASTATIN CA 10 MG TABLET (FP) PO SCH (21:34)
[2017-12-28] MEDS: methylPREDNISolone NA SUCC 125 MG/2 ML VIAL IVPB SCH ×2 (02:17→09:38)
[2017-12-28] MEDS ORDERED: ONDANSETRON 4 MG TABLET PO PRN (08:31)
[2017-12-28 09:06] LABS: ALBUMIN 2.8 g/dl (3.5-5.0); ALK PHOS 47 U/L (32-92); ANION GAP 4 (8-16); BLOOD UREA NITROGEN 21 mg/dl (7-18); CALCIUM 7.8 mg/dl (8.4-10.2); CHLORIDE 96 mmol/L (98-107); CO2 28 mmol/L (22-28); GLUCOSE,RANDOM 123 mg/dl (74-106); HEMATOCRIT 36.7 % (35.4-49); HEMOGLOBIN 12.6 GM/dl (11.7-16.9); MCH 29.9 pg (25.7-33.7); MCHC 34.4 g/dl (32.0-35.9); MEAN CELL VOLUME 86.8 fl (80-96); MEAN PLT VOLUME 7.6 fl (7.5-11.1); PHOSPHOROUS 3.7 mg/dl (2.5-4.6); PLATELET COUNT 195 K/MM3 (134-434); POTASSIUM 3.5 mmol/L (3.5-5.1); RBC 4.23 M/mm3 (4.00-5.60); RDW 12.4 % (11.9-15.9); SGOT/AST 32 U/L (10-42); SGPT/ALT 20 U/L (10-40); SODIUM 128 mmol/L (136-145); TOT PROT 5.8 g/dl (6.4-8.3); WHITE BLOOD COUNT 8.8 K/mm3 (4.0-10.8)
[2017-12-28] MEDS ORDERED: PT OWN MED DRAWER 7, Y5N ONE ×2 (09:25→21:55)
[2017-12-28 09:29] LABS: BILIRUBIN,TOTAL < 0.5 mg/dl (0.2-1.0); CREATININE < 0.8 mg/dl (0.6-1.3)
[2017-12-28] MEDS: TIOTROPIUM BROMIDE 18 MCG CAPSULES IH SCH (09:37)
[2017-12-28] MEDS: CARVEDILOL PHOSPHATE CR 40 MG CAPSULE (FP) PO SCH (09:37)
[2017-12-28] MEDS: BUDESONIDE/FORMETEROL FUMARATE 80/4.5 mcg INHALER IH SCH ×2 (09:37→21:50)
[2017-12-28] MEDS: VALSARTAN 160 MG TABLET (UD) PO SCH (09:38)
[2017-12-28] MEDS: CEFTRIAXONE 1 G/50 ML PREMIX 50 ML IVPB SCH (09:38)
[2017-12-28] MEDS: amLODIPine BESYLATE 5 MG TABLET (FP) PO SCH (09:38)
[2017-12-28] MEDS: ENOXAPARIN NA (PORCINE) 40 MG/0.4 ML DISP.SYRIN SQ SCH (09:39)
[2017-12-28] MEDS: ASPIRIN 81 MG CHEWABLE TABLETS PO SCH (09:40)
[2017-12-28] MEDS: AZITHROMYCIN IVPB 250 ML IVPB SCH (09:40)
[2017-12-28] MEDS: NICOTINE 21 MG/24 HOURS TOPICAL PATCH TD SCH (09:40)
[2017-12-28] MEDS ORDERED: POTASSIUM CHLORIDE TABS 20 MEQ TABLET.ER (FP) PO ONE (10:00)
[2017-12-28] MEDS: methylPREDNISolone NA SUCC 40 MG/1 ML VIAL IVPB SCH ×2 (10:42→17:59)
--- NOTE | 2017-12-28 12:14 | PN ---
Physical Exam: SUBJECTIVE: Patient seen and examined, reports less cough, does report dyspnea upon exertion. OBJECTIVE: Patient is a 72 y/o male with a past medical history of copd, hypertension, and tobacco smoker. Patient was admitted from the emergency department for copd exacerbation with new left lung mass. Vital Signs Period Temp Pulse Resp BP Sys/Pepper Pulse Ox Last 24 Hr 97.6 F-98.8 F 72-90 18-20 131-147/55-73 83-93 GENERAL: The patient is awake, alert, and fully oriented, in no acute distress. HEAD: Normal with no signs of trauma. EYES: PERRL, extraocular movements intact, sclera anicteric, conjunctiva clear. No ptosis. ENT: Ears normal, nares patent, oropharynx clear without exudates, moist mucous membranes. NECK: Trachea midline, full range of motion, supple. LUNGS: Breath sounds equal, clear to auscultation bilaterally, no wheezes, no crackles, no accessory muscle use. HEART: Regular rate and rhythm, S1, S2 without murmur, rub or gallop. ABDOMEN: Soft, nontender, nondistended, normoactive bowel sounds, no guarding, no rebound, no hepatosplenomegaly, no masses. EXTREMITIES: 2+ pulses, warm, well-perfused, no edema. NEUROLOGICAL: Cranial nerves II through XII grossly intact. Normal speech, gait not observed. PSYCH: Normal mood, normal affect. SKIN: Warm, dry, normal turgor, no rashes or lesions noted Laboratory Results - last 24 hr 12/28/17 12/28/17 08:15 08:15 WBC 8.8 D RBC 4.23 Hgb 12.6 Hct 36.7 MCV 86.8 MCH 29.9 MCHC 34.4 RDW 12.4 Plt Count 195 MPV 7.6 Neutrophils % No Result Required. Lymphocytes % No Result Required. Sodium 128 L Potassium 3.5 Chloride 96 L Carbon Dioxide 28 Anion Gap 4 L BUN 21 H D Creatinine < 0.8 Creat Clearance w eGFR > 60 Random Glucose 123 H Calcium 7.8 L Phosphorus 3.7 Magnesium 2.0 Total Bilirubin < 0.5 D AST 32 ALT 20 D Alkaline Phosphatase 47 Total Protein 5.8 L Albumin 2.8 L Active Medications Generic Name Dose Route Start Last Admin Trade Name Freq PRN Reason Stop Dose Admin Acetaminophen 500 mg 12/25/17 23:27 Tylenol - PO Q6H PRN PAIN LEVEL 1-5 Albuterol/Ipratropium 1 amp 12/27/17 11:03 12/27/17 21:36 Duoneb - NEB 1 amp Q6H PRN Administration SHORT OF BREATH/WHEEZING Amlodipine Besylate 5 mg 12/26/17 10:00 12/28/17 09:38 Norvasc - PO 5 mg DAILY ALLAN Administration Aspirin 81 mg 12/27/17 11:00 12/28/17 09:40 Asa - PO Not Given DAILY ALLAN Atorvastatin Calcium 10 mg 12/26/17 22:00 12/27/17 21:34 Lipitor - PO 10 mg HS ALLAN Administration Budesonide/Formoterol Fumarate 2 puff 12/27/17 11:30 12/28/17 09:37 Symbicort 80/4.5mcg - IH 2 inhaler BID ALLAN Administration Carvedilol 40 mg 12/26/17 10:00 12/28/17 09:37 Coreg Cr - PO 40 mg DAILY ALLAN Administration Enoxaparin Sodium 40 mg 12/26/17 10:00 12/28/17 09:39 Lovenox - SQ Not Given DAILY ALLAN CEFTRIAXONE 1 G/50 ML PREMIX 50 mls @ 100 mls/hr 12/26/17 12:05 12/28/17 09: 38 Ceftriaxone 1 Gm-D5w Bag IVPB 100 mls/hr DAILY ALLAN Administration Azithromycin 250 mls @ 250 mls/hr 12/26/17 12:08 12/28/17 09:40 Zithromax 500mg Ivpb (Pre-Docked) IVPB 250 mls/hr DAILY ALLAN Administration Methylprednisolone Sodium Succinate 40 mg 12/28/17 10:45 12/28/17 10:42 Solu-Medrol - IVPB Not Given Q8H-IV ALLAN Nicotine 21 mg 12/26/17 10:00 12/28/17 09:40 Nicoderm Patch - TD 21 mg DAILY ALLAN Administration Ondansetron HCl 8 mg 12/28/17 08:31 Zofran - PO Q8H PRN NAUSEA Tiotropium [place] 1 puff 12/26/17 10:00 12/28/17 09:37 Spiriva - IH 1 each DAILY ALLAN Administration Valsartan 320 mg 12/26/17 10:00 12/28/17 09:38 Diovan - PO 320 mg DAILY ALLAN Administration Microbiology 12/25/17 21:25 Blood - Peripheral Venous Blood Culture - Preliminary NO GROWTH OBTAINED AFTER 48 HOURS, INCUBATION TO CONTINUE FOR 3 DAYS. 12/25/17 21:15 Blood - Peripheral Venous Blood Culture - Preliminary NO GROWTH OBTAINED AFTER 48 HOURS, INCUBATION TO CONTINUE FOR 3 DAYS. IMAGING chest xray: no acute pathology, hyperinflation ct of chest: large lobulated left infrahilar mass strongly suspicous for malignancy, moderately severe copd, thyromegly ASSESSMENT/PLAN: 1. 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 - discussed with Dr Srivastava and Dr Hunt patient will require outpatient follow up for lung biopsy - mri of brain with and without contrast r/o mets - pulmonary and oncology consulted and following COPD excerbation - continue solumedrol 40mg tid, symbicort, spirva, with prn combivent nebulizers - keep spo2 above 92% with supplemental o2 2) cardiovascular hypertension - continue home meds coreg, diovan, norvasc - b/p at goal elevate troponin - echo lv wnl, ef 60-65% - cardiology consulted and followed - troponin downtrended FEN hyponatremia - secondary to lung CA, strict monitoring low sodium diet PPX - lovenox - pepcid - scd/oob Disposition: Inpatient admission Visit type - Emergency Visit Emergency Visit: Yes ED Registration Date: 12/25/17 Care time: The patient presented to the Emergency Department on the above date and was hospitalized for further evaluation of their emergent condition. - New Patient This patient is new to me today: No - Critical Care Critical Care patient: No - Discharge Referral Referred to [facility] Med P.C.: No
[2017-12-28 12:33] LABS: PLATELET ESTIMATE ADEQUATE
--- NOTE | 2017-12-28 14:40 | PN ---
Progress Note (short form) - Note Progress Note: PULMONARY States breathing improving but not at baseline. Still some cough and wheezing. Saturating low 90s on 2L nasal cannula. Last Vital Signs Temp Pulse Resp BP Pulse Ox 98.0 F 68 19 131/60 92 L 12/28/17 14:12 12/28/17 14:12 12/28/17 14:12 12/28/17 14:12 12/28/17 06:41 Gen: NAD at rest Heart: RRR Lung: scattered rhonchi, wheezes Abd: soft, nontender Ext: no edema, +clubbing CBC, BMP 12/28/17 08:15 12/28/17 08:15 Active Medications Acetaminophen (Tylenol -) 500 mg PO Q6H PRN PRN Reason: PAIN LEVEL 1-5 Albuterol/Ipratropium (Duoneb -) 1 amp NEB Q6H PRN PRN Reason: SHORT OF BREATH/WHEEZING Last Admin: 12/27/17 21:36 Dose: 1 amp Amlodipine Besylate (Norvasc -) 5 mg PO DAILY PENDING SALE TO [facility] Last Admin: 12/28/17 09:38 Dose: 5 mg Aspirin (Asa -) 81 mg PO DAILY PENDING S[facility] TO [facility] Last Admin: 12/28/17 09:40 Dose: Not Given Atorvastatin Calcium (Lipitor -) 10 mg PO HS PENDING SALE TO [facility] Last Admin: 12/27/17 21:34 Dose: 10 mg Budesonide/Formoterol Fumarate (Symbicort 80/4.5mcg -) 2 puff IH BID PENDING SALE TO [facility] Last Admin: 12/28/17 09:37 Dose: 2 inhaler Carvedilol (Coreg Cr -) 40 mg PO DAILY PENDING SALE TO [facility] Last Admin: 12/28/17 09:37 Dose: 40 mg Enoxaparin Sodium (Lovenox -) 40 mg SQ DAILY PENDING SALE TO [facility] Last Admin: 12/28/17 09:39 Dose: Not Given CEFTRIAXONE 1 G/50 ML PREMIX (Ceftriaxone 1 Gm-D5w Bag) 50 mls @ 100 mls/hr IVPB DAILY PENDING SALE TO [facility] Last Admin: 12/28/17 09:38 Dose: 100 mls/hr Azithromycin (Zithromax 500mg Ivpb (Pre-Docked)) 250 mls @ 250 mls/hr IVPB DAILY PENDING SALE TO [facility] Last Admin: 12/28/17 09:40 Dose: 250 mls/hr Methylprednisolone Sodium Succinate (Solu-Medrol -) 40 mg IVPB Q8H-IV PENDING SALE TO [facility] Last Admin: 12/28/17 10:42 Dose: Not Given Nicotine (Nicoderm Patch -) 21 mg TD DAILY PENDING S[facility] TO [facility] Last Admin: 12/28/17 09:40 Dose: 21 mg Ondansetron HCl (Zofran -) 8 mg PO Q8H PRN PRN Reason: NAUSEA Tiotropium [place] (Spiriva -) 1 puff IH DAILY PENDING SALE TO [facility] Last Admin: 12/28/17 09:37 Dose: 1 each Valsartan (Diovan -) 320 mg PO DAILY PENDING SALE TO [facility] Last Admin: 12/28/17 09:38 Dose: 320 mg A/P Acute Hypoxic Respiratory Failure Acute COPD Exacerbation Lung Mass HTN +Troponins likely [place] Ischemia Hyponatremia Smoker - continue IV medrol at current dose - inhaled bronchodilators standing and PRN - O2 to keep SpO2 >90%, will need home O2 - monitor sodium level - will need bronchoscopy/biopsy when respiratory status stable, mass too central for CT guided needle biopsy - DVT prophylaxis
[2017-12-28 18:29] LABS: PH,URINE 5.5 (4.5-8); URINE APPEARANCE Clear; URINE BILIRUBIN Negative (NEGATIVE); URINE BLOOD Negative (NEGATIVE); URINE GLUCOSE (UA) Negative (NEGATIVE); URINE KETONE Negative (NEGATIVE); URINE LEUK ESTERASE Negative (NEGATIVE); URINE NITRITE Negative (NEGATIVE); URINE PROTEIN Trace (NEGATIVE); URINE UROBILINOGEN 0.2 (0.2-1.0)
[2017-12-28 18:30] LABS: URINE COLOR YELLOW
[2017-12-28] MEDS: ALBUTEROL SO4 2.5/IPRATROPIUM 0.5 INH SOL 3 ML VIAL.NEB. NEB PRN (21:50)
[2017-12-28] MEDS: ATORVASTATIN CA 10 MG TABLET (FP) PO SCH (21:50)
[2017-12-29] MEDS: methylPREDNISolone NA SUCC 40 MG/1 ML VIAL IVPB SCH ×3 (01:39→18:04)
--- NOTE | 2017-12-29 02:01 | HOSP ---
Subjective - Review of Symptoms Events since last encounter: Pt noted with 28 beat episode wide complex tachycardia on monitor Subjective: Pt with no complaints. was sleeping during event and slept through entire event. Upon awakening pt he denies chest pain, palpitations, SOB. Physical Examination Vital Signs: Vital Signs Temperature 98.5 F 12/28/17 22:00 Pulse Rate 77 12/28/17 22:00 Respiratory Rate 19 12/28/17 22:00 Blood Pressure 154/71 12/28/17 22:00 O2 Sat by Pulse Oximetry (%) 91 L 12/28/17 22:00 Constitutional: Yes: No Distress, Calm Cardiovascular: Yes: Regular Rate and Rhythm, S1, S2 Respiratory: Yes: CTA Bilaterally Gastrointestinal: Yes: Normal Bowel Sounds, Soft. No: Tenderness, Rebound Labs: CBC, BMP 12/28/17 08:15 12/28/17 08:15 Hospitalist Encounter Assessment: Wide complex tachycardia, unknown etiology - 12 lead ECG ordered - CBc, BMP, mag, phos, cardiac profile stat - cardiology to f/u in am. ECG 0203 sinus rhythm with premature Supraventricular complexes, no acute ST/T changes Vent rate 75, QTC 453
[2017-12-29 03:04] LABS: HEMATOCRIT 35.4 % (35.4-49); MCH 29.3 pg (25.7-33.7); MCHC 33.8 g/dl (32.0-35.9); MEAN CELL VOLUME 86.9 fl (80-96); RBC 4.08 M/mm3 (4.00-5.60); WHITE BLOOD COUNT 7.2 K/mm3 (4.0-10.8)
[2017-12-29 03:05] LABS: NEUT % 76.2 % (42.8-82.8); PLATELET COUNT 178 K/MM3 (134-434); RDW 13.2 % (11.9-15.9)
[2017-12-29 03:06] LABS: LYMPH % 16.9 % (8-40); MONO % 6.9 % (3.8-10.2)
[2017-12-29 03:44] LABS: ANION GAP 11 (8-16); BLOOD UREA NITROGEN 19 mg/dL (7-18); CALCIUM 7.6 mg/dL (8.5-10.1); CHLORIDE 96 mmol/L (98-107); CO2 28 mmol/L (21-32); CREATININE 0.7 mg/dL (0.7-1.3); GLUCOSE,RANDOM 121 mg/dL (74-106); MAGNESIUM 2.4 mg/dL (1.8-2.4); PHOSPHOROUS 3.2 mg/dL (2.5-4.9); POTASSIUM 3.9 mmol/L (3.5-5.1); SODIUM 135 mmol/L (136-145)
[2017-12-29 09:08] LABS: HEMATOCRIT 35.4 % (35.4-49); HEMOGLOBIN 12.2 GM/dl (11.7-16.9); LYMPH % 15.9 % (8-40); MCH 29.9 pg (25.7-33.7); MCHC 34.5 g/dl (32.0-35.9); MEAN CELL VOLUME 86.6 fl (80-96); MEAN PLT VOLUME 7.5 fl (7.5-11.1); MONO % 5.7 % (3.8-10.2); NEUT % 78.4 % (42.8-82.8); PLATELET COUNT 175 K/MM3 (134-434); RBC 4.09 M/mm3 (4.00-5.60); RDW 12.3 % (11.9-15.9); WHITE BLOOD COUNT 6.6 K/mm3 (4.0-10.8)
[2017-12-29 09:24] LABS: ANION GAP 7 (8-16); BLOOD UREA NITROGEN 19 mg/dl (7-18); CALCIUM 7.7 mg/dl (8.4-10.2); CHLORIDE 96 mmol/L (98-107); CO2 28 mmol/L (22-28); CREATININE 0.6 mg/dl (0.6-1.3); GLUCOSE,RANDOM 117 mg/dl (74-106); MAGNESIUM 2.1 mg/dL (1.8-2.4); PHOSPHOROUS 3.5 mg/dl (2.5-4.6); POTASSIUM 3.9 mmol/L (3.5-5.1); SODIUM 131 mmol/L (136-145)
[2017-12-29] MEDS ORDERED: PT OWN MED DRAWER 7, Y5N ONE ×2 (09:53→22:03)
[2017-12-29] MEDS: ASPIRIN 81 MG CHEWABLE TABLETS PO SCH (10:14)
[2017-12-29] MEDS: amLODIPine BESYLATE 5 MG TABLET (FP) PO SCH (10:15)
[2017-12-29] MEDS: CEFTRIAXONE 1 G/50 ML PREMIX 50 ML IVPB SCH (10:15)
[2017-12-29] MEDS: TIOTROPIUM BROMIDE 18 MCG CAPSULES IH SCH (10:15)
[2017-12-29] MEDS: BUDESONIDE/FORMETEROL FUMARATE 80/4.5 mcg INHALER IH SCH ×2 (10:15→22:12)
[2017-12-29] MEDS: VALSARTAN 160 MG TABLET (UD) PO SCH (10:16)
[2017-12-29] MEDS: ENOXAPARIN NA (PORCINE) 40 MG/0.4 ML DISP.SYRIN SQ SCH (10:17)
[2017-12-29] MEDS: CARVEDILOL PHOSPHATE CR 40 MG CAPSULE (FP) PO SCH (10:17)
[2017-12-29] MEDS: NICOTINE 21 MG/24 HOURS TOPICAL PATCH TD SCH (10:17)
--- NOTE | 2017-12-29 10:51 | EKG ---
Test Reason : Blood Pressure : / mmHG Vent. Rate : 075 BPM Atrial Rate : 075 BPM P-R Int : 140 ms QRS Dur : 082 ms QT Int : 406 ms P-R-T Axes : 031 075 074 degrees QTc Int : 453 ms SINUS RHYTHM WITH PREMATURE SUPRAVENTRICULAR COMPLEXES SEPTAL INFARCT , AGE UNDETERMINED ABNORMAL ECG WHEN COMPARED WITH ECG OF 26-DEC-2017 08:10, PREMATURE SUPRAVENTRICULAR COMPLEXES ARE NOW PRESENT SEPTAL INFARCT IS NOW PRESENT Confirmed by MARGAUX MICHAELS, JED ([id number]) on 12/29/2017 10:51:22 AM Referred By: WELLINGTON GUDINO Confirmed By:JED DAMICO MD
--- NOTE | 2017-12-29 13:09 | PN ---
Physical Exam: SUBJECTIVE: Patient seen and examined, ambulatory at bedside, reports feeling well, denies any chest pain or shortness of breath. OBJECTIVE:Patient is a 72 y/o male with a past medical history of copd, hypertension, and tobacco smoker. Patient was admitted from the emergency department for copd exacerbation with new left lung mass. Vital Signs Period Temp Pulse Resp BP Sys/Pepper Pulse Ox Last 24 Hr 97.3 F-98.7 F 67-77 16-19 131-154/60-83 91-94 GENERAL: The patient is awake, alert, and fully oriented, in no acute distress. HEAD: Normal with no signs of trauma. EYES: PERRL, extraocular movements intact, sclera anicteric, conjunctiva clear. No ptosis. ENT: Ears normal, nares patent, oropharynx clear without exudates, moist mucous membranes. NECK: Trachea midline, full range of motion, supple. LUNGS: Breath sounds equal, clear to auscultation bilaterally to apexes, diminished to base, moist cough noted, no wheezes, no crackles, no accessory muscle use. HEART: Regular rate and rhythm, S1, S2 without murmur, rub or gallop. ABDOMEN: Soft, nontender, nondistended, normoactive bowel sounds, no guarding, no rebound, no hepatosplenomegaly, no masses. EXTREMITIES: 2+ pulses, warm, well-perfused, no edema. NEUROLOGICAL: Cranial nerves II through XII grossly intact. Normal speech, gait not observed. PSYCH: Normal mood, normal affect. SKIN: Warm, dry, normal turgor, no rashes or lesions noted Laboratory Results - last 24 hr 12/28/17 12/28/17 12/28/17 18:15 18:15 18:15 WBC RBC Hgb Hct MCV MCH MCHC RDW Plt Count MPV Neutrophils % Lymphocytes % Monocytes % Eosinophils % Basophils % Sodium Potassium Chloride Carbon Dioxide Anion Gap BUN Creatinine POC Glucometer Random Glucose Calcium Phosphorus Magnesium Creatine Kinase Troponin I Urine Color Yellow Urine Appearance Clear Urine pH 5.5 Ur Specific [place] 1.025 Urine Protein Trace Urine Glucose (UA) Negative Urine Ketones Negative Urine Blood Negative Urine Nitrite Negative Urine Bilirubin Negative Urine Urobilinogen 0.2 Ur Leukocyte Esterase Negative Urine Osmolality 863 Ur Random Sodium 46 12/29/17 12/29/17 12/29/17 01:54 01:54 06:30 WBC 7.2 RBC 4.08 Hgb 12.0 Hct 35.4 MCV 86.9 MCH 29.3 MCHC 33.8 RDW 13.2 Plt Count 178 MPV 8.0 Neutrophils % 76.2 Lymphocytes % 16.9 D Monocytes % 6.9 Eosinophils % 0.0 Basophils % 0.0 Sodium 135 L Potassium 3.9 Chloride 96 L Carbon Dioxide 28 Anion Gap 11 BUN 19 H Creatinine 0.7 POC Glucometer 201 Random Glucose 121 H Calcium 7.6 L Phosphorus 3.2 Magnesium 2.4 Creatine Kinase 55 Troponin I < 0.02 D Urine Color Urine Appearance Urine pH Ur Specific [place] Urine Protein Urine Glucose (UA) Urine Ketones Urine Blood Urine Nitrite Urine Bilirubin Urine Urobilinogen Ur Leukocyte Esterase Urine Osmolality Ur Random Sodium 12/29/17 12/29/17 08:30 08:30 WBC 6.6 RBC 4.09 Hgb 12.2 Hct 35.4 MCV 86.6 MCH 29.9 MCHC 34.5 RDW 12.3 Plt Count 175 MPV 7.5 Neutrophils % 78.4 Lymphocytes % 15.9 Monocytes % 5.7 Eosinophils % 0.0 Basophils % 0.0 Sodium 131 L Potassium 3.9 Chloride 96 L Carbon Dioxide 28 Anion Gap 7 L BUN 19 H Creatinine 0.6 D POC Glucometer Random Glucose 117 H Calcium 7.7 L Phosphorus 3.5 Magnesium 2.1 Creatine Kinase Troponin I Urine Color Urine Appearance Urine pH Ur Specific [place] Urine Protein Urine Glucose (UA) Urine Ketones Urine Blood Urine Nitrite Urine Bilirubin Urine Urobilinogen Ur Leukocyte Esterase Urine Osmolality Ur Random Sodium Active Medications Generic Name Dose Route Start Last Admin Trade Name Pihq PRN Reason Stop Dose Admin Acetaminophen 500 mg 12/25/17 23:27 Tylenol - PO Q6H PRN PAIN LEVEL 1-5 Albuterol/Ipratropium 1 amp 12/27/17 11:03 12/28/17 21:50 Duoneb - NEB 1 amp Q6H PRN Administration SHORT OF BREATH/WHEEZING Amlodipine Besylate 5 mg 12/26/17 10:00 12/29/17 10:15 Norvasc - PO 5 mg DAILY ALLAN Administration Aspirin 81 mg 12/27/17 11:00 12/29/17 10:14 Asa - PO Not Given DAILY [facility] Atorvastatin Calcium 10 mg 12/26/17 22:00 12/28/17 21:50 Lipitor - PO 10 mg HS ALLAN Administration Budesonide/Formoterol Fumarate 2 puff 12/27/17 11:30 12/29/17 10:15 Symbicort 80/4.5mcg - IH 2 inhaler BID ALLAN Administration Carvedilol 40 mg 12/26/17 10:00 12/29/17 10:17 Coreg Cr - PO 40 mg DAILY ALLAN Administration Enoxaparin Sodium 40 mg 12/26/17 10:00 12/29/17 10:17 Lovenox - SQ Not Given DAILY [facility] CEFTRIAXONE 1 G/50 ML PREMIX 50 mls @ 100 mls/hr 12/26/17 12:05 12/29/17 10: 15 Ceftriaxone 1 Gm-D5w Bag IVPB 100 mls/hr DAILY ALLAN Administration Methylprednisolone Sodium Succinate 40 mg 12/28/17 10:45 12/29/17 10:16 Solu-Medrol - IVPB 40 mg Q8H-IV ALLAN Administration Nicotine 21 mg 12/26/17 10:00 12/29/17 10:17 Nicoderm Patch - TD 21 mg DAILY ALLAN Administration Ondansetron HCl 8 mg 12/28/17 08:31 Zofran - PO Q8H PRN NAUSEA Tiotropium [place] 1 puff 12/26/17 10:00 12/29/17 10:15 Spiriva - IH 1 puff DAILY ALLAN Administration Valsartan 320 mg 12/26/17 10:00 12/29/17 10:16 Diovan - PO 320 mg DAILY ALLAN Administration Microbiology 12/25/17 21:25 Blood - Peripheral Venous Blood Culture - Preliminary NO GROWTH OBTAINED AFTER 72 HOURS, INCUBATION TO CONTINUE FOR 2 DAYS. 12/25/17 21:15 Blood - Peripheral Venous Blood Culture - Preliminary NO GROWTH OBTAINED AFTER 72 HOURS, INCUBATION TO CONTINUE FOR 2 DAYS. IMAGING chest xray: no acute pathology, hyperinflation ct of chest: large lobulated left infrahilar mass strongly suspicous for malignancy, moderately severe copd, thyromegly ASSESSMENT/PLAN: 1. 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 - discussed with Dr Srivastava and Dr Hunt patient will require outpatient follow up for lung biopsy - mri of brain with and without contrast r/o mets pending final report today - pulmonary and oncology consulted and following COPD excerbation - continue solumedrol 40mg tid, symbicort, spirva, with prn combivent nebulizers - keep spo2 above 92% with supplemental o2 2) cardiovascular hypertension - continue home meds coreg, diovan, norvasc - b/p at goal wide complex tachycardia - 23 beat run noted on telemetry this AM, patient remained asymptomatic, discussed with Dr Rhodes (cardiology) advised continue coreg and norvasc with monitorin elevate troponin - echo lv wnl, ef 60-65% - cardiology consulted and followed - troponin downtrended FEN hyponatremia - secondary to lung CA, strict monitoring low sodium diet PPX - lovenox - pepcid - scd/oob Disposition: Inpatient admission Visit type - Emergency Visit Emergency Visit: Yes ED Registration Date: 12/25/17 Care time: The patient presented to the Emergency Department on the above date and was hospitalized for further evaluation of their emergent condition. - New Patient This patient is new to me today: No - Critical Care Critical Care patient: No - Discharge Referral Referred to [facility] No
--- NOTE | 2017-12-29 13:25 | PN ---
Progress Note (short form) - Note Progress Note: PULMONARY REMAINS WITH CONGESTED COUGH AND SOB HAD 12 BEAT WIDE COMPLEX RUN LAST NIGHT VSS/AFEBRILE ANICTERIC B/L DISTANT SOUNDS WITH SCATTERED RHONCHI S1S2 NSR BS+ NO EDEMA LABS/MEDS/IMAGES/NOTES REVIEWED Acute Hypoxic Respiratory Failure Acute COPD Exacerbation Lung Mass likely malignant HTN +Troponins likely Demand Ischemia/12 beat run wide complex tachycardia Hyponatremia Active Smoker - continue IV medrol at current dose - inhaled bronchodilators standing and PRN - O2 to keep SpO2 >90%, will need home O2 - monitor sodium level - will need bronchoscopy/biopsy when respiratory status stable, mass too central for CT guided needle biopsy - DVT prophylaxis Brooklynn INGRAM MD Problem List - Problems (1) Lung mass Code(s): R91.8 - OTHER NONSPECIFIC ABNORMAL FINDING OF LUNG FIELD (2) HTN (hypertension) Code(s): I10 - ESSENTIAL (PRIMARY) HYPERTENSION (3) Hyperlipidemia Code(s): E78.5 - HYPERLIPIDEMIA, UNSPECIFIED
[2017-12-29] MEDS ORDERED: ALBUTEROL SO4 2.5/IPRATROPIUM 0.5 INH SOL 3 ML VIAL.NEB. NEB ONE (13:45)
[2017-12-29] MEDS: ATORVASTATIN CA 10 MG TABLET (FP) PO SCH (22:12)
[2017-12-30] MEDS: methylPREDNISolone NA SUCC 40 MG/1 ML VIAL IVPB SCH ×2 (02:48→09:57)
[2017-12-30] MEDS: ASPIRIN 81 MG CHEWABLE TABLETS PO SCH (09:55)
[2017-12-30] MEDS: CEFTRIAXONE 1 G/50 ML PREMIX 50 ML IVPB SCH (09:55)
[2017-12-30] MEDS: VALSARTAN 160 MG TABLET (UD) PO SCH (09:56)
[2017-12-30] MEDS: ENOXAPARIN NA (PORCINE) 40 MG/0.4 ML DISP.SYRIN SQ SCH (09:56)
[2017-12-30] MEDS: amLODIPine BESYLATE 5 MG TABLET (FP) PO SCH (09:56)
[2017-12-30] MEDS: NICOTINE 21 MG/24 HOURS TOPICAL PATCH TD SCH (09:56)
[2017-12-30] MEDS: BUDESONIDE/FORMETEROL FUMARATE 80/4.5 mcg INHALER IH SCH ×2 (09:57→21:52)
[2017-12-30] MEDS: TIOTROPIUM BROMIDE 18 MCG CAPSULES IH SCH (09:57)
--- NOTE | 2017-12-30 10:06 | PN ---
Progress Note, Physician History of Present Illness: PULMONARY ALERT,FEELING BETTET,LESS DYSPNEIC,+COUGH - Current Medication List Current Medications: Active Medications Acetaminophen (Tylenol -) 500 mg PO Q6H PRN PRN Reason: PAIN LEVEL 1-5 Albuterol/Ipratropium (Duoneb -) 1 amp NEB Q6H PRN PRN Reason: SHORT OF BREATH/WHEEZING Last Admin: 12/28/17 21:50 Dose: 1 amp Amlodipine Besylate (Norvasc -) 5 mg PO DAILY [facility] Last Admin: 12/30/17 09:56 Dose: 5 mg Aspirin (Asa -) 81 mg PO DAILY [facility] Last Admin: 12/30/17 09:55 Dose: 81 mg Atorvastatin Calcium (Lipitor -) 10 mg PO HS [facility] Last Admin: 12/29/17 22:12 Dose: 10 mg Budesonide/Formoterol Fumarate (Symbicort 80/4.5mcg -) 2 puff IH BID [facility] Last Admin: 12/30/17 09:57 Dose: 2 inhaler Carvedilol (Coreg Cr -) 40 mg PO DAILY [facility] Last Admin: 12/29/17 10:17 Dose: 40 mg Enoxaparin Sodium (Lovenox -) 40 mg SQ DAILY [facility] Last Admin: 12/30/17 09:56 Dose: 40 mg CEFTRIAXONE 1 G/50 ML PREMIX (Ceftriaxone 1 Gm-D5w Bag) 50 mls @ 100 mls/hr IVPB DAILY [facility] Last Admin: 12/30/17 09:55 Dose: 100 mls/hr Methylprednisolone Sodium Succinate (Solu-Medrol -) 40 mg IVPB Q8H-IV [facility] Last Admin: 12/30/17 09:57 Dose: 40 mg Multivitamins/Minerals/Vitamin C (Tab-A-Vit -) 1 tab PO DAILY [facility] Nicotine (Nicoderm Patch -) 21 mg TD DAILY [facility] Last Admin: 12/30/17 09:56 Dose: 21 mg Ondansetron HCl (Zofran -) 8 mg PO Q8H PRN PRN Reason: NAUSEA Tiotropium [place] (Spiriva -) 1 puff IH DAILY [facility] Last Admin: 12/30/17 09:57 Dose: 1 puff Valsartan (Diovan -) 320 mg PO DAILY [facility] Last Admin: 12/30/17 09:56 Dose: 320 mg - Objective Vital Signs: Vital Signs Temperature 98.1 F 12/30/17 06:00 Pulse Rate 64 12/30/17 06:00 Respiratory Rate 19 12/30/17 06:00 Blood Pressure 159/69 12/30/17 06:00 O2 Sat by Pulse Oximetry (%) 95 12/30/17 08:49 Constitutional: Yes: Well Nourished, Calm Eyes: Yes: WNL HENT: Yes: WNL Neck: Yes: WNL Cardiovascular: Yes: Regular Rate and Rhythm, S1, S2 Respiratory: Yes: Wheezes (SCATTERED ERIN WHEEZES) Gastrointestinal: Yes: Normal Bowel Sounds, Soft Extremities: Yes: WNL Edema: No Labs: CBC, BMP Problem List - Problems (1) COPD with acute exacerbation Code(s): J44.1 - CHRONIC OBSTRUCTIVE PULMONARY DISEASE W (ACUTE) EXACERBATION (2) HTN (hypertension) Code(s): I10 - ESSENTIAL (PRIMARY) HYPERTENSION (3) Hyperlipidemia Code(s): E78.5 - HYPERLIPIDEMIA, UNSPECIFIED (4) Lung mass Code(s): R91.8 - OTHER NONSPECIFIC ABNORMAL FINDING OF LUNG FIELD Assessment/Plan Problem List - Problems (1) Lung mass Code(s): R91.8 - OTHER NONSPECIFIC ABNORMAL FINDING OF LUNG FIELD (2) HTN (hypertension) Code(s): I10 - ESSENTIAL (PRIMARY) HYPERTENSION (3) Hyperlipidemia Code(s): E78.5 - HYPERLIPIDEMIA, UNSPECIFIED Assessment/Plan LARGE RAPIDLY GROWING CENTRAL MASS FAVORS SMALL CELL LUNG CANCER ACUTE EXACERBATION COPD WITH BRONCHOSPASTIC COMPONENT SUGGEST:STEROIDS SAME DOSE BRONCHODILATORS/ANTIBIOTICS CHECK PRE/POST AMB SPO2 ONCE CLINICALLY STABLE WOULD PURSUE DIAGNOSTIC WORKUP OUTPATIENT DR RYAN
[2017-12-30] MEDS: CARVEDILOL PHOSPHATE CR 40 MG CAPSULE (FP) PO SCH (10:15)
[2017-12-30] MEDS: MULTIVITAMINS (DAILY MVI) TABLET (FP) PO SCH (10:16)
--- NOTE | 2017-12-30 12:56 | PN ---
Physical Exam: SUBJECTIVE: Patient seen and examined, reports ongoing cough with dyspnea upon exertion OBJECTIVE:Patient is a 72 y/o male with a past medical history of copd, hypertension, and tobacco smoker. Patient was admitted from the emergency department for copd exacerbation with new left lung mass. Vital Signs Period Temp Pulse Resp BP Sys/Pepper Pulse Ox Last 24 Hr 98.0 F-98.6 F 64-81 19-20 138-159/63-79 91-95 GENERAL: The patient is awake, alert, and fully oriented, in no acute distress. HEAD: Normal with no signs of trauma. EYES: PERRL, extraocular movements intact, sclera anicteric, conjunctiva clear. No ptosis. ENT: Ears normal, nares patent, oropharynx clear without exudates, moist mucous membranes. NECK: Trachea midline, full range of motion, supple. LUNGS: Breath sounds equal, clear to auscultation bilaterally, no wheezes, no crackles, no accessory muscle use. HEART: Regular rate and rhythm, S1, S2 without murmur, rub or gallop. ABDOMEN: Soft, nontender, nondistended, normoactive bowel sounds, no guarding, no rebound, no hepatosplenomegaly, no masses. EXTREMITIES: 2+ pulses, warm, well-perfused, no edema. NEUROLOGICAL: Cranial nerves II through XII grossly intact. Normal speech, gait not observed. PSYCH: Normal mood, normal affect. SKIN: Warm, dry, normal turgor, no rashes or lesions noted Active Medications Generic Name Dose Route Start Last Admin Trade Name Freq PRN Reason Stop Dose Admin Acetaminophen 500 mg 12/25/17 23:27 Tylenol - PO Q6H PRN PAIN LEVEL 1-5 Albuterol/Ipratropium 1 amp 12/27/17 11:03 12/28/17 21:50 Duoneb - NEB 1 amp Q6H PRN Administration SHORT OF BREATH/WHEEZING Amlodipine Besylate 5 mg 12/26/17 10:00 12/30/17 09:56 Norvasc - PO 5 mg DAILY ALLAN Administration Aspirin 81 mg 12/27/17 11:00 12/30/17 09:55 Asa - PO 81 mg DAILY ALLAN Administration Atorvastatin Calcium 10 mg 12/26/17 22:00 12/29/17 22:12 Lipitor - PO 10 mg HS ALLAN Administration Budesonide/Formoterol Fumarate 2 puff 12/27/17 11:30 12/30/17 09:57 Symbicort 80/4.5mcg - IH 2 inhaler BID ALLAN Administration Carvedilol 40 mg 12/26/17 10:00 12/29/17 10:17 Coreg Cr - PO 40 mg DAILY ALLAN Administration Enoxaparin Sodium 40 mg 12/26/17 10:00 12/30/17 09:56 Lovenox - SQ 40 mg DAILY ALLAN Administration CEFTRIAXONE 1 G/50 ML PREMIX 50 mls @ 100 mls/hr 12/26/17 12:05 12/30/17 09: 55 Ceftriaxone 1 Gm-D5w Bag IVPB 100 mls/hr DAILY [facility] Administration Methylprednisolone Sodium Succinate 40 mg 12/28/17 10:45 12/30/17 09:57 Solu-Medrol - IVPB 40 mg Q8H-IV ALLAN Administration Multivitamins/Minerals/Vitamin C 1 tab 12/30/17 10:00 Tab-A-Vit - PO DAILY [facility] Nicotine 21 mg 12/26/17 10:00 12/30/17 09:56 Nicoderm Patch - TD 21 mg DAILY [facility] Administration Ondansetron HCl 8 mg 12/28/17 08:31 Zofran - PO Q8H PRN NAUSEA Tiotropium [place] 1 puff 12/26/17 10:00 12/30/17 09:57 Spiriva - IH 1 puff DAILY ALLAN Administration Valsartan 320 mg 12/26/17 10:00 12/30/17 09:56 Diovan - PO 320 mg DAILY ALLAN Administration Microbiology 12/25/17 21:25 Blood - Peripheral Venous Blood Culture - Preliminary NO GROWTH OBTAINED AFTER 96 HOURS, INCUBATION TO CONTINUE FOR 1 DAYS. 12/25/17 21:15 Blood - Peripheral Venous Blood Culture - Preliminary NO GROWTH OBTAINED AFTER 96 HOURS, INCUBATION TO CONTINUE FOR 1 DAYS. IMAGING chest xray: no acute pathology, hyperinflation ct of chest: large lobulated left infrahilar mass strongly suspicous for malignancy, moderately severe copd, thyromegly mri of brain with and without contrast: no mass or lesions, chronic microvascular changes ASSESSMENT/PLAN: 1. 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 - discussed with Dr Srivastava and Dr Hunt patient will require outpatient follow up for lung biopsy - pulmonary and oncology consulted and following COPD excerbation - continue solumedrol 40mg tid, symbicort, spirva, with prn combivent nebulizers - keep spo2 above 92% with supplemental o2 2) cardiovascular hypertension - continue home meds coreg, diovan, norvasc - b/p at goal wide complex tachycardia - 23 beat run noted on telemetry (12/29), patient remained asymptomatic, discussed with Dr Rhodes (cardiology) advised continue coreg and norvasc with monitoring, no new events noted elevate troponin - echo lv wnl, ef 60-65% - cardiology consulted and followed - troponin downtrended FEN hyponatremia - secondary to lung CA low sodium diet PPX - lovenox - pepcid - scd/oob Disposition: Inpatient admission Visit type - Emergency Visit Emergency Visit: Yes ED Registration Date: 12/25/17 Care time: The patient presented to the Emergency Department on the above date and was hospitalized for further evaluation of their emergent condition. - New Patient This patient is new to me today: No - Critical Care Critical Care patient: No - Discharge Referral Referred to [facility] Med [facility].C.: No
[2017-12-30] MEDS ORDERED: PT OWN MED DRAWER 7, Y5N ONE (21:08)
[2017-12-30] MEDS: ATORVASTATIN CA 10 MG TABLET (FP) PO SCH (21:53)
[2017-12-31] MEDS: methylPREDNISolone NA SUCC 40 MG/1 ML VIAL IVPB SCH ×4 (01:54→17:28)
[2017-12-31] MEDS ORDERED: PT OWN MED DRAWER 7, Y5N ONE ×2 (09:13→21:09)
[2017-12-31] MEDS: CEFTRIAXONE 1 G/50 ML PREMIX 50 ML IVPB SCH (09:30)
[2017-12-31] MEDS: CARVEDILOL PHOSPHATE CR 40 MG CAPSULE (FP) PO SCH (09:32)
[2017-12-31] MEDS: TIOTROPIUM BROMIDE 18 MCG CAPSULES IH SCH (09:32)
[2017-12-31] MEDS: VALSARTAN 160 MG TABLET (UD) PO SCH (09:32)
[2017-12-31] MEDS: BUDESONIDE/FORMETEROL FUMARATE 80/4.5 mcg INHALER IH SCH ×2 (09:32→21:20)
[2017-12-31] MEDS: NICOTINE 21 MG/24 HOURS TOPICAL PATCH TD SCH (09:32)
[2017-12-31] MEDS: MULTIVITAMINS (DAILY MVI) TABLET (FP) PO SCH (09:33)
[2017-12-31] MEDS: amLODIPine BESYLATE 5 MG TABLET (FP) PO SCH (09:33)
[2017-12-31] MEDS: ENOXAPARIN NA (PORCINE) 40 MG/0.4 ML DISP.SYRIN SQ SCH (09:39)
[2017-12-31] MEDS: ASPIRIN 81 MG CHEWABLE TABLETS PO SCH (09:40)
--- NOTE | 2017-12-31 10:55 | PN ---
Progress Note (short form) - Note Progress Note: PULMONARY REMAINS WITH CONGESTED COUGH AND SOB HAD 12 BEAT WIDE COMPLEX RUN AWAITING CARDIO MRI BRAIN NO METS VSS/AFEBRILE ANICTERIC B/L DISTANT SOUNDS WITH SCATTERED RHONCHI S1S2 NSR BS+ NO EDEMA LABS/MEDS/IMAGES/NOTES REVIEWED Acute Hypoxic Respiratory Failure Acute COPD Exacerbation Lung Mass likely malignant HTN +Troponins likely Demand Ischemia/12 beat run wide complex tachycardia Hyponatremia Active Smoker - continue IV medrol at current dose - inhaled bronchodilators standing and PRN - O2 to keep SpO2 >90%, will need home O2 - monitor sodium level - will need bronchoscopy/biopsy when respiratory status stable, mass too central for CT guided needle biopsy - DVT prophylaxis - Cardio augieal Brooklynn INGRAM MD Problem List - Problems (1) Lung mass Code(s): R91.8 - OTHER NONSPECIFIC ABNORMAL FINDING OF LUNG FIELD (2) HTN (hypertension) Code(s): I10 - ESSENTIAL (PRIMARY) HYPERTENSION (3) Hyperlipidemia Code(s): E78.5 - HYPERLIPIDEMIA, UNSPECIFIED
--- NOTE | 2017-12-31 12:20 | PN ---
Physical Exam: SUBJECTIVE: Patient seen and examined. Patient is a 72 y/o male with a past medical history of copd, hypertension, and tobacco smoker. Patient was admitted from the emergency department for copd exacerbation with new left lung mass. OBJECTIVE: Vital Signs Period Temp Pulse Resp BP Sys/Pepper Pulse Ox Last 24 Hr 97.5 F-97.7 F 65-75 18-20 139-146/68-80 91-93 GENERAL: The patient is awake, alert, and fully oriented, in no acute distress. HEAD: Normal with no signs of trauma. NECK: Trachea midline, full range of motion, supple. LUNGS: Breath sounds equal, diminished with wheezing to auscultation bilaterally , no crackles, no accessory muscle use. HEART: Regular rate and rhythm, S1, S2 without murmur, rub or gallop. ABDOMEN: Soft, nontender, nondistended, normoactive bowel sounds, no guarding, no rebound, no hepatosplenomegaly, no masses. EXTREMITIES: 2+ pulses, warm, well-perfused, no edema. NEUROLOGICAL: Cranial nerves II through XII grossly intact. Normal speech, gait not observed. PSYCH: Normal mood, normal affect. SKIN: Warm, dry, normal turgor, no rashes or lesions noted Active Medications Generic Name Dose Route Start Last Admin Trade Name Freq PRN Reason Stop Dose Admin Acetaminophen 500 mg 12/25/17 23:27 Tylenol - PO Q6H PRN PAIN LEVEL 1-5 Albuterol/Ipratropium 1 amp 12/27/17 11:03 12/28/17 21:50 Duoneb - NEB 1 amp Q6H PRN Administration SHORT OF BREATH/WHEEZING Amlodipine Besylate 5 mg 12/26/17 10:00 12/31/17 09:33 Norvasc - PO 5 mg DAILY ALLAN Administration Aspirin 81 mg 12/27/17 11:00 12/31/17 09:40 Asa - PO Not Given DAILY [facility] Atorvastatin Calcium 10 mg 12/26/17 22:00 12/30/17 21:53 Lipitor - PO 10 mg HS ALLAN Administration Budesonide/Formoterol Fumarate 2 puff 12/27/17 11:30 12/31/17 09:32 Symbicort 80/4.5mcg - IH 2 puff BID ALLAN Administration Carvedilol 40 mg 12/26/17 10:00 12/31/17 09:32 Coreg Cr - PO 40 mg DAILY [facility]AN Administration Enoxaparin Sodium 40 mg 12/26/17 10:00 12/31/17 09:39 Lovenox - SQ Not Given DAILY [facility] CEFTRIAXONE 1 G/50 ML PREMIX 50 mls @ 100 mls/hr 12/26/17 12:05 12/31/17 09: 30 Ceftriaxone 1 Gm-D5w Bag IVPB 100 mls/hr DAILY [facility] Administration Methylprednisolone Sodium Succinate 40 mg 12/28/17 10:45 12/31/17 09:33 Solu-Medrol - IVPB 40 mg Q8H-IV ALLAN Administration Multivitamins/Minerals/Vitamin C 1 tab 12/30/17 10:00 12/31/17 09:33 Tab-A-Vit - PO 1 tab DAILY [facility] Administration Nicotine 21 mg 12/26/17 10:00 12/31/17 09:32 Nicoderm Patch - TD 21 mg DAILY ALLAN Administration Ondansetron HCl 8 mg 12/28/17 08:31 Zofran - PO Q8H PRN NAUSEA Tiotropium [place] 1 puff 12/26/17 10:00 12/31/17 09:32 Spiriva - IH 1 puff DAILY [facility] Administration Valsartan 320 mg 12/26/17 10:00 12/31/17 09:32 Diovan - PO 320 mg DAILY ALLAN Administration ASSESSMENT/PLAN: 1. pulmonary left lung mass likely small cell lung ca - discussed with Dr Hunt, patient will require outpatient follow up for lung biopsy via bronchoscopy - pulmonary and oncology consulted and following COPD excerbation - continue solumedrol 40mg tid, symbicort, spirva, with prn combivent nebulizers - keep spo2 above 92% with supplemental o2 -planned for home O2 with case packer and sealer set up 2) cardiovascular hypertension - continue home meds coreg, diovan, norvasc - b/p at goal wide complex tachycardia - 23 beat run noted on telemetry (12/29), patient remained asymptomatic, discussed with Dr Rhodes (cardiology) advised continue coreg and norvasc with monitoring, no new events noted elevate troponin - echo lv wnl, ef 60-65% - cardiology consult changed to Dr. Santa, and pending. FEN hyponatremia - secondary to lung CA low sodium diet PPX - lovenox - pepcid - scd/oob Disposition: Inpatient admission Visit type - Emergency Visit Emergency Visit: Yes ED Registration Date: 12/25/17 Care time: The patient presented to the Emergency Department on the above date and was hospitalized for further evaluation of their emergent condition. - New Patient This patient is new to me today: Yes Date on this admission: 12/31/17 - Critical Care Critical Care patient: No - Discharge Referral Referred to [facility] Med [facility].C.: No
--- NOTE | 2017-12-31 13:54 | PN ---
Progress Note (short form) - Note Progress Note: * Initial cardiology consultation performed by Dr. Holland. CC: sob S: sob improving, no cp, palps, dizziness. Current Medications Acetaminophen (Tylenol -) 500 mg PO Q6H PRN PRN Reason: PAIN LEVEL 1-5 Albuterol/Ipratropium (Duoneb -) 1 amp NEB Q6H PRN PRN Reason: SHORT OF BREATH/WHEEZING Last Admin: 12/28/17 21:50 Dose: 1 amp Amlodipine Besylate (Norvasc -) 5 mg PO DAILY [facility] Last Admin: 12/31/17 09:33 Dose: 5 mg Aspirin (Asa -) 81 mg PO DAILY [facility] Last Admin: 12/31/17 09:40 Dose: Not Given Atorvastatin Calcium (Lipitor -) 10 mg PO HS [facility] Last Admin: 12/30/17 21:53 Dose: 10 mg Budesonide/Formoterol Fumarate (Symbicort 80/4.5mcg -) 2 puff IH BID [facility] Last Admin: 12/31/17 09:32 Dose: 2 puff Carvedilol (Coreg Cr -) 40 mg PO DAILY [facility] Last Admin: 12/31/17 09:32 Dose: 40 mg Enoxaparin Sodium (Lovenox -) 40 mg SQ DAILY [facility] Last Admin: 12/31/17 09:39 Dose: Not Given CEFTRIAXONE 1 G/50 ML PREMIX (Ceftriaxone 1 Gm-D5w Bag) 50 mls @ 100 mls/hr IVPB DAILY [facility] Last Admin: 12/31/17 09:30 Dose: 100 mls/hr Methylprednisolone Sodium Succinate (Solu-Medrol -) 40 mg IVPB Q8H-IV [facility] Last Admin: 12/31/17 09:33 Dose: 40 mg Multivitamins/Minerals/Vitamin C (Tab-A-Vit -) 1 tab PO DAILY [facility] Last Admin: 12/31/17 09:33 Dose: 1 tab Nicotine (Nicoderm Patch -) 21 mg TD DAILY [facility] Last Admin: 12/31/17 09:32 Dose: 21 mg Ondansetron HCl (Zofran -) 8 mg PO Q8H PRN PRN Reason: NAUSEA Tiotropium [place] (Spiriva -) 1 puff IH DAILY [facility] Last Admin: 12/31/17 09:32 Dose: 1 puff Valsartan (Diovan -) 320 mg PO DAILY [facility] Last Admin: 12/31/17 09:32 Dose: 320 mg Vital Signs - 24 hr 12/30/17 12/30/17 12/30/17 14:26 21:00 22:00 Temperature 97.5 F L 97.7 F Pulse Rate 75 65 Respiratory 20 20 20 Rate Blood Pressure 146/68 146/80 O2 Sat by Pulse 91 L 92 L Oximetry (%) 12/31/17 12/31/17 06:21 09:28 Temperature 97.6 F 97.6 F Pulse Rate 66 66 Respiratory 18 18 Rate Blood Pressure 139/74 141/69 O2 Sat by Pulse 93 L Oximetry (%) Intake & Output 12/29/17 12/30/17 12/31/17 01/01/18 07:59 07:59 07:59 07:59 Intake Total 1250 1175 1250 450 Balance 1250 1175 1250 450 Weight 144 lb 0.6 oz 146 lb 0.6 oz 145 lb 9 oz nad, calm jvd flat, neck supple + wheezes, diminished air movement. nl effort rrr nl s1, s2 no mrg + bs soft nt nd ext without e/c/c + dp/pt aaox3 no jaundice, diaphoresis CBC, BMP 12/29/17 08:30 12/29/17 08:30 Laboratory Tests 12/25/17 12/25/17 12/25/17 21:15 21:15 21:25 Band Neutrophils % Sodium 127 L Potassium Lactic Acid 2.1 H Magnesium Creatine Kinase 117 Troponin I 0.06 B-Natriuretic Peptide Albumin TSH 12/26/17 12/26/17 12/26/17 02:45 06:00 06:30 Band Neutrophils % Sodium Potassium Lactic Acid 0.9 Magnesium Creatine Kinase Troponin I 0.09 H B-Natriuretic Peptide 2846.50 H Albumin TSH 0.44 12/26/17 12/26/17 12/27/17 06:30 07:46 07:30 Band Neutrophils % 8.0 Sodium Potassium 3.6 Lactic Acid Magnesium Creatine Kinase 86 Troponin I 0.05 B-Natriuretic Peptide Albumin TSH 12/27/17 12/28/17 12/29/17 07:30 08:15 01:54 Band Neutrophils % Sodium 128 L 135 L Potassium Lactic Acid Magnesium Creatine Kinase 55 Troponin I < 0.03 D < 0.02 D B-Natriuretic Peptide Albumin 2.8 L TSH 12/29/17 08:30 Band Neutrophils % Sodium Potassium Lactic Acid Magnesium 2.1 Creatine Kinase Troponin I B-Natriuretic Peptide Albumin TSH ekg 12/29: sr with pac's. anterior q's (present on prior office ekg's). early r wave progression. tele: SR with occasional pvc's (polymorphic) prior tele strips reviewed. 28 beat run of wide complex tachycardia. echo 12/2017: nl lv/rv size/fn. 1+ mvp. mild-mod post mr/tr. no pericardial effusion. no mets on brain mri here. chest ct: infrahilar mass. moderately severe parenchymal copd changes. thyromegaly. images reviewed --> also calc cors. 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 SOB/hypoxia/copd - likely pulmonary etiology with copd exacerbation and new chest mass. - per pulm, deferring bronchoscopy/bx while with acute exacerbation of copd. has plan for further work up as outpatient. borderline abnormal troponin/hl - flat trend, likely 2/2 demand in setting of underlying cad. High suspicion for underlying cad: patient also with + risk factors, calcified cors on chest ct and ventricular ectopy/arrhythmia as mentioned below. - was having progressive cam last month and pmd had recommended he get stress testing but patient had wanted to defer for a month or two b/c of changes with his insurance. - In light of the high suspcion for cad, would recommend stress testing as an outpatient for risk stratification once respiratory status is more stable. - con't medical mgm't for cad with asa, statin, anti-anginals. vt - no further recurrence. - ischemic evaluation as mentioned above. - con't coreg - lyte repletion prn. - In light of history of mvp, can consider need for event monitor as outpatient at discretion of outpatient immigration manager. 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 - no signs of valvular decompensation + tobacco - cessation counseling htn - reasonably controlled on current regimen, con't. If bp trends up can consider uptitration. hyponatremia - mgm't per pmd.
[2017-12-31] MEDS: ATORVASTATIN CA 10 MG TABLET (FP) PO SCH (21:20)
[2018-01-01] MEDS: methylPREDNISolone NA SUCC 40 MG/1 ML VIAL IVPB SCH ×3 (02:02→17:15)
[2018-01-01 08:00] LABS: MEAN PLT VOLUME 6.7 fl (7.5-11.1)
[2018-01-01 08:06] LABS: BASO % 0.7 % (0-2.0); HEMATOCRIT 37.3 % (35.4-49); HEMOGLOBIN 12.9 GM/dl (11.7-16.9); LYMPH % 24.5 % (8-40); MCH 29.9 pg (25.7-33.7); MCHC 34.6 g/dl (32.0-35.9); MEAN CELL VOLUME 86.5 fl (80-96); MONO % 3.3 % (3.8-10.2); NEUT % 71.5 % (42.8-82.8); PLATELET COUNT 282 K/MM3 (134-434); RBC 4.31 M/mm3 (4.00-5.60); RDW 12.6 % (11.9-15.9)
[2018-01-01 08:46] LABS: ALBUMIN 2.3 g/dl (3.5-5.0); ALK PHOS 47 U/L (32-92); ANION GAP 7 (8-16); BILIRUBIN,TOTAL 0.2 mg/dl (0.2-1.0); BLOOD UREA NITROGEN 18 mg/dl (7-18); CALCIUM 7.5 mg/dl (8.4-10.2); CHLORIDE 96 mmol/L (98-107); CO2 28 mmol/L (22-28); CREATININE 0.6 mg/dl (0.6-1.3); GLUCOSE,RANDOM 113 mg/dl (74-106); MAGNESIUM 2.2 mg/dL (1.8-2.4); PHOSPHOROUS 3.5 mg/dl (2.5-4.6); POTASSIUM 3.4 mmol/L (3.5-5.1); SGOT/AST 43 U/L (10-42); SGPT/ALT 56 U/L (10-40); SODIUM 131 mmol/L (136-145); TOT PROT 5.2 g/dl (6.4-8.3)
[2018-01-01] MEDS ORDERED: PT OWN MED DRAWER 7, Y5N ONE ×2 (09:37→21:15)
[2018-01-01] MEDS: NICOTINE 21 MG/24 HOURS TOPICAL PATCH TD SCH (10:36)
[2018-01-01] MEDS: TIOTROPIUM BROMIDE 18 MCG CAPSULES IH SCH (10:36)
[2018-01-01] MEDS: amLODIPine BESYLATE 5 MG TABLET (FP) PO SCH (10:36)
[2018-01-01] MEDS: MULTIVITAMINS (DAILY MVI) TABLET (FP) PO SCH (10:36)
[2018-01-01] MEDS: VALSARTAN 160 MG TABLET (UD) PO SCH (10:36)
[2018-01-01] MEDS: CARVEDILOL PHOSPHATE CR 40 MG CAPSULE (FP) PO SCH (10:43)
[2018-01-01] MEDS: ASPIRIN 81 MG CHEWABLE TABLETS PO SCH (10:43)
[2018-01-01] MEDS: CEFTRIAXONE 1 G/50 ML PREMIX 50 ML IVPB SCH (10:43)
[2018-01-01] MEDS: ENOXAPARIN NA (PORCINE) 40 MG/0.4 ML DISP.SYRIN SQ SCH (10:44)
[2018-01-01] MEDS: BUDESONIDE/FORMETEROL FUMARATE 80/4.5 mcg INHALER IH SCH ×2 (10:44→21:36)
--- NOTE | 2018-01-01 11:54 | PN ---
Physical Exam: SUBJECTIVE: Patient seen and examined. Patient is a 72 y/o male with a past medical history of copd, hypertension, and tobacco smoker. Patient was admitted from the emergency department for copd exacerbation with new left lung mass. OBJECTIVE: Vital Signs Period Temp Pulse Resp BP Sys/Pepper Pulse Ox Last 24 Hr 97.5 F-98.1 F 65-78 18-20 132-156/64-88 92-92 GENERAL: The patient is awake, alert, and fully oriented, in no acute distress. HEAD: Normal with no signs of trauma. EYES: PERRL, extraocular movements intact, sclera anicteric, conjunctiva clear. No ptosis. ENT: Ears normal, nares patent, oropharynx clear without exudates, moist mucous membranes. NECK: Trachea midline, full range of motion, supple. LUNGS: Breath sounds equal, clear to auscultation bilaterally, no wheezes, no crackles, no accessory muscle use. HEART: Regular rate and rhythm, S1, S2 without murmur, rub or gallop. ABDOMEN: Soft, nontender, nondistended, normoactive bowel sounds, no guarding, no rebound, no hepatosplenomegaly, no masses. EXTREMITIES: 2+ pulses, warm, well-perfused, no edema. NEUROLOGICAL: Cranial nerves II through XII grossly intact. Normal speech, gait not observed. PSYCH: Normal mood, normal affect. SKIN: Warm, dry, normal turgor, no rashes or lesions noted Laboratory Results - last 24 hr 01/01/18 01/01/18 07:45 07:45 WBC 9.0 D RBC 4.31 Hgb 12.9 Hct 37.3 MCV 86.5 MCH 29.9 MCHC 34.6 RDW 12.6 Plt Count 282 D MPV 6.7 L D Neutrophils % 71.5 Lymphocytes % 24.5 D Monocytes % 3.3 L Eosinophils % 0.0 Basophils % 0.7 D Sodium 131 L Potassium 3.4 L Chloride 96 L Carbon Dioxide 28 Anion Gap 7 L BUN 18 Creatinine 0.6 Creat Clearance w eGFR > 60 Random Glucose 113 H Calcium 7.5 L Phosphorus 3.5 Magnesium 2.2 Total Bilirubin 0.2 D AST 43 H D ALT 56 H D Alkaline Phosphatase 47 Total Protein 5.2 L Albumin 2.3 L Active Medications Generic Name Dose Route Start Last Admin Trade Name Freq PRN Reason Stop Dose Admin Acetaminophen 500 mg 12/25/17 23:27 Tylenol - PO Q6H PRN PAIN LEVEL 1-5 Albuterol/Ipratropium 1 amp 12/27/17 11:03 12/28/17 21:50 Duoneb - NEB 1 amp Q6H PRN Administration SHORT OF BREATH/WHEEZING Amlodipine Besylate 5 mg 12/26/17 10:00 01/01/18 10:36 Norvasc - PO 5 mg DAILY [facility] Administration Aspirin 81 mg 12/27/17 11:00 01/01/18 10:43 Asa - PO Not Given DAILY [facility] Atorvastatin Calcium 10 mg 12/26/17 22:00 12/31/17 21:20 Lipitor - PO 10 mg HS [facility] Administration Budesonide/Formoterol Fumarate 2 puff 12/27/17 11:30 01/01/18 10:44 Symbicort 80/4.5mcg - IH 2 puff BID [facility] Administration Carvedilol 40 mg 12/26/17 10:00 01/01/18 10:43 Coreg Cr - PO 40 mg DAILY [facility] Administration Enoxaparin Sodium 40 mg 12/26/17 10:00 01/01/18 10:44 Lovenox - SQ Not Given DAILY [facility] CEFTRIAXONE 1 G/50 ML PREMIX 50 mls @ 100 mls/hr 12/26/17 12:05 01/01/18 10: 43 Ceftriaxone 1 Gm-D5w Bag IVPB 100 mls/hr DAILY [facility] Administration Methylprednisolone Sodium Succinate 40 mg 12/28/17 10:45 01/01/18 10:36 Solu-Medrol - IVPB 40 mg Q8H-IV [facility] Administration Multivitamins/Minerals/Vitamin C 1 tab 12/30/17 10:00 01/01/18 10:36 Tab-A-Vit - PO 1 tab DAILY [facility] Administration Nicotine 21 mg 12/26/17 10:00 01/01/18 10:36 Nicoderm Patch - TD 21 mg DAILY [facility] Administration Ondansetron HCl 8 mg 12/28/17 08:31 Zofran - PO Q8H PRN NAUSEA Tiotropium [place] 1 puff 12/26/17 10:00 01/01/18 10:36 Spiriva - IH 1 puff DAILY [facility] Administration Valsartan 320 mg 12/26/17 10:00 01/01/18 10:36 Diovan - PO 320 mg DAILY [facility] Administration ASSESSMENT/PLAN: 1. 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 COPD excerbation - continue solumedrol 40mg tid and if remains stable plan tomorrow to convert to po , symbicort, spirva, with prn combivent nebulizers -keep spo2 above 92% with supplemental o2 -planned for home O2 and already set up at home 3. Hypertension -continue home meds coreg, diovan, norvasc -b/p at goal 4. Wide complex tachycardia episode -23 beat run noted on telemetry (12/29), patient remained asymptomatic, and no new events noted -echo lv wnl, ef 60-65% from 12/19 -cardiology consult Dr. Leny castro 5. Elevated AST/ALT -hold statin -trend labs 6. FEN -Hyponatremia, restrict fluids, trend labs -low Na diet -follow urine lytes 7. PPX -lovenox while hospital -pepcid/GI -scd/oob Disposition: Inpatient admission plans for discharge on wednesday when course completed. Visit type - Emergency Visit Emergency Visit: Yes ED Registration Date: 12/25/17 Care time: The patient presented to the Emergency Department on the above date and was hospitalized for further evaluation of their emergent condition. - New Patient This patient is new to me today: No - Critical Care Critical Care patient: No - Discharge Referral Referred to [facility] Med P.C.: No
[2018-01-01] MEDS ORDERED: POTASSIUM CHLORIDE TABS 20 MEQ TABLET.ER (FP) PO ONE (12:32)
[2018-01-01] MEDS: ALBUTEROL SO4 2.5/IPRATROPIUM 0.5 INH SOL 3 ML VIAL.NEB. NEB PRN (15:46)
[2018-01-02] MEDS: methylPREDNISolone NA SUCC 40 MG/1 ML VIAL IVPB SCH ×2 (01:17→10:06)
[2018-01-02 09:18] LABS: ACTIVATED PTT 24.1 SECONDS (24.0-38.9)
[2018-01-02 09:23] LABS: INR 1.05 (0.82-1.09); PROTHROMBIN TIME (PATIENT) 11.7 SEC (10.2-13.0)
[2018-01-02] MEDS ORDERED: PT OWN MED DRAWER 7, Y5N ONE ×2 (09:40→21:24)
[2018-01-02 09:42] LABS: HEMATOCRIT 40.9 % (35.4-49); HEMOGLOBIN 13.6 GM/dl (11.7-16.9); LYMPH % 21.7 % (8-40); MCH 29.2 pg (25.7-33.7); MCHC 33.3 g/dl (32.0-35.9); MEAN CELL VOLUME 87.5 fl (80-96); MEAN PLT VOLUME 6.9 fl (7.5-11.1); MONO % 3.9 % (3.8-10.2); NEUT % 74.4 % (42.8-82.8); PLATELET COUNT 348 K/MM3 (134-434); RBC 4.67 M/mm3 (4.00-5.60); RDW 12.5 % (11.9-15.9); WHITE BLOOD COUNT 11.6 K/mm3 (4.0-10.8)
[2018-01-02] MEDS: ASPIRIN 81 MG CHEWABLE TABLETS PO SCH ×2 (10:06→10:08)
[2018-01-02] MEDS: MULTIVITAMINS (DAILY MVI) TABLET (FP) PO SCH (10:06)
[2018-01-02] MEDS: VALSARTAN 160 MG TABLET (UD) PO SCH (10:06)
[2018-01-02] MEDS: TIOTROPIUM BROMIDE 18 MCG CAPSULES IH SCH (10:06)
[2018-01-02] MEDS: amLODIPine BESYLATE 5 MG TABLET (FP) PO SCH (10:06)
[2018-01-02] MEDS: CEFTRIAXONE 1 G/50 ML PREMIX 50 ML IVPB SCH (10:06)
[2018-01-02] MEDS: NICOTINE 21 MG/24 HOURS TOPICAL PATCH TD SCH (10:07)
[2018-01-02] MEDS: BUDESONIDE/FORMETEROL FUMARATE 80/4.5 mcg INHALER IH SCH ×2 (10:07→21:25)
[2018-01-02] MEDS: CARVEDILOL PHOSPHATE CR 40 MG CAPSULE (FP) PO SCH (10:07)
[2018-01-02 10:18] LABS: ANION GAP 9 (8-16); BLOOD UREA NITROGEN 19 mg/dl (7-18); CALCIUM 7.6 mg/dl (8.4-10.2); CHLORIDE 96 mmol/L (98-107); CO2 26 mmol/L (22-28); CREATININE 0.6 mg/dl (0.6-1.3); GLUCOSE,RANDOM 100 mg/dl (74-106); POTASSIUM 4.1 mmol/L (3.5-5.1); SODIUM 131 mmol/L (136-145); TOT PROT 5.7 g/dl (6.4-8.3)
[2018-01-02 10:19] LABS: ALBUMIN 2.6 g/dl (3.5-5.0); ALK PHOS 52 U/L (32-92); AMYLASE 70 U/L (25-125); BILIRUBIN,TOTAL 0.2 mg/dl (0.2-1.0); SGOT/AST 47 U/L (10-42); SGPT/ALT 76 U/L (10-40)
[2018-01-02 10:55] LABS: BILIRUBIN,DIRECT < 0.2 mg/dL (0.0-0.3)
[2018-01-02 11:07] LABS: LIPASE 195 U/L (73-393)
--- NOTE | 2018-01-02 13:07 | PN ---
Physical Exam: SUBJECTIVE: Patient seen and examined. His breathing is better than yesterday. He feels good. Cough very intermittent, he prefers the o2 on. OBJECTIVE: Vital Signs Period Temp Pulse Resp BP Sys/Pepper Pulse Ox Last 24 Hr 97.5 F-98.1 F 68-73 18-20 134-145/66-78 90-96 PE Neuro: alert, awake, cn 2-12intact Pulm: course but clear + NC CV: s1 s2 rrr no mrg Abd: s nt nd +bs Ext: warm, no le edema Laboratory Results - last 24 hr 01/02/18 01/02/18 01/02/18 06:00 06:00 06:00 WBC 11.6 H RBC 4.67 Hgb 13.6 Hct 40.9 MCV 87.5 MCH 29.2 MCHC 33.3 RDW 12.5 Plt Count 348 D MPV 6.9 L Neutrophils % 74.4 Lymphocytes % 21.7 Monocytes % 3.9 Eosinophils % 0.0 Basophils % 0.0 PT with INR 11.7 INR 1.05 PTT (Actin FS) 24.1 L Sodium 131 L Potassium 4.1 D Chloride 96 L Carbon Dioxide 26 Anion Gap 9 BUN 19 H Creatinine 0.6 Creat Clearance w eGFR > 60 Random Glucose 100 Calcium 7.6 L Total Bilirubin 0.2 Direct Bilirubin < 0.2 AST 47 H ALT 76 H D Alkaline Phosphatase 52 Total Protein 5.7 L Albumin 2.6 L Total Amylase 70 Lipase 195 Active Medications Generic Name Dose Route Start Last Admin Trade Name Freq PRN Reason Stop Dose Admin Albuterol/Ipratropium 1 amp 12/27/17 11:03 01/01/18 15:46 Duoneb - NEB 1 amp Q6H PRN Administration SHORT OF BREATH/WHEEZING Amlodipine Besylate 5 mg 12/26/17 10:00 01/02/18 10:06 Norvasc - PO 5 mg DAILY [facility] Administration Aspirin 81 mg 12/27/17 11:00 01/02/18 10:08 Asa - PO Not Given DAILY [facility] Budesonide/Formoterol Fumarate 2 puff 12/27/17 11:30 01/02/18 10:07 Symbicort 80/4.5mcg - IH 2 puff BID [facility] Administration Carvedilol 40 mg 12/26/17 10:00 01/02/18 10:07 Coreg Cr - PO 40 mg DAILY [facility] Administration Methylprednisolone Sodium Succinate 40 mg 12/28/17 10:45 01/02/18 10:06 Solu-Medrol - IVPB 40 mg Q8H-IV [facility] Administration Multivitamins/Minerals/Vitamin C 1 tab 12/30/17 10:00 01/02/18 10:06 Tab-A-Vit - PO 1 tab DAILY [facility] Administration Nicotine 21 mg 12/26/17 10:00 01/02/18 10:07 Nicoderm Patch - TD 21 mg DAILY [facility] Administration Ondansetron HCl 8 mg 12/28/17 08:31 Zofran - PO Q8H PRN NAUSEA Tiotropium [place] 1 puff 12/26/17 10:00 01/02/18 10:06 Spiriva - IH 1 puff DAILY [facility] Administration Valsartan 320 mg 12/26/17 10:00 01/02/18 10:06 Diovan - PO 320 mg DAILY [facility] Administration Assessment: 72 year old smoker with pmhx HTN, HLD, MVP, ASHD, COPD, pulmonary nodules, prior increased etoh use, BPH, thyroid nodules admitted with acute sob and new found lung mass. Hospital course complicated by borderline abnormal troponins and short run (28 beat) of wide complex tachycardia. Plan: 1. Shortness of breath/COPD excerbation/ new hylar mass - Left lung mass likely small cell lung ca requiring a further work up - Per Dr Hunt, patient will require outpatient follow up for lung biopsy via bronchoscopy, credit correspondence clerk to make appt tomorrow before pt leaves - Oncology follow up as outpt with Dr. Lockwood - Complete final dose ceftriaxone today - Spiriva, symbicort 2. COPD exacerbation - Taper to po steroids 40m BID - Home with taper - Maintain supplemental o2, home o2 has been delivered 3. Hyponatremia - Sodium improving - Possible due to lung mass/ca - Fluid restrict to 1L - Repeat BMP in AM 4. Hypertension - Stable - Continue harvey priest norvasc 5. Wide complex tachycardia episode/troponins - No further events - High suspension for underlying CAD - Will need stress and possible event holter as outpt - Continue cem, norvasc, asa 6. Elevated AST/ALT - ALT up trending - Hold statin 7. DVT PPX - Lovenox Disposition: Inpatient admission plans for discharge on wednesday Visit type - Emergency Visit Emergency Visit: Yes ED Registration Date: 12/25/17 Care time: The patient presented to the Emergency Department on the above date and was hospitalized for further evaluation of their emergent condition. - New Patient This patient is new to me today: Yes Date on this admission: 01/02/18 - Critical Care Critical Care patient: No
[2018-01-02] MEDS: ENOXAPARIN NA (PORCINE) 40 MG/0.4 ML DISP.SYRIN SQ SCH (13:55)
--- NOTE | 2018-01-02 15:55 | PN ---
Progress Note (short form) - Note Progress Note: PULMONARY States breathing continues to improve. Still some cough and wheezing. Saturating low 90s on 2L nasal cannula. Has been ambulating with improvement. Last Vital Signs Temp Pulse Resp BP Pulse Ox 98.1 F 69 19 141/61 91 L 01/02/18 14:00 01/02/18 14:00 01/02/18 14:00 01/02/18 14:00 01/02/18 14:00 Gen: NAD at rest Heart: RRR Lung: distant breath sounds, rare rhonchi Abd: soft, nontender Ext: no edema, +clubbing CBC, BMP 01/02/18 06:00 01/02/18 06:00 Active Medications Albuterol/Ipratropium (Duoneb -) 1 amp NEB Q6H PRN PRN Reason: SHORT OF BREATH/WHEEZING Last Admin: 01/01/18 15:46 Dose: 1 amp Amlodipine Besylate (Norvasc -) 5 mg PO DAILY [facility] Last Admin: 01/02/18 10:06 Dose: 5 mg Aspirin (Asa -) 81 mg PO DAILY [facility] Last Admin: 01/02/18 10:08 Dose: Not Given Budesonide/Formoterol Fumarate (Symbicort 80/4.5mcg -) 2 puff IH BID [facility] Last Admin: 01/02/18 10:07 Dose: 2 puff Carvedilol (Coreg Cr -) 40 mg PO DAILY [facility] Last Admin: 01/02/18 10:07 Dose: 40 mg Enoxaparin Sodium (Lovenox -) 40 mg SQ DAILY [facility] Last Admin: 01/02/18 13:55 Dose: Not Given Multivitamins/Minerals/Vitamin C (Tab-A-Vit -) 1 tab PO DAILY [facility] Last Admin: 01/02/18 10:06 Dose: 1 tab Nicotine (Nicoderm Patch -) 21 mg TD DAILY [facility] Last Admin: 01/02/18 10:07 Dose: 21 mg Ondansetron HCl (Zofran -) 8 mg PO Q8H PRN PRN Reason: NAUSEA Prednisone (Deltasone -) 40 mg PO BID [facility] Tiotropium [place] (Spiriva -) 1 puff IH DAILY [facility] Last Admin: 01/02/18 10:06 Dose: 1 puff Valsartan (Diovan -) 320 mg PO DAILY [facility] Last Admin: 01/02/18 10:06 Dose: 320 mg A/P Acute Hypoxic Respiratory Failure Acute COPD Exacerbation Lung Mass HTN +Troponins likely [place] Ischemia Hyponatremia Smoker - prednisone taper - inhaled bronchodilators standing and PRN - O2 to keep SpO2 >90%, will need home O2 - monitor sodium level - will need bronchoscopy/biopsy when respiratory status stable, mass too central for CT guided needle biopsy - DVT prophylaxis - close outpt f/u
--- NOTE | 2018-01-02 17:15 | PN ---
Progress Note (short form) - Note Progress Note: * Initial cardiology consultation performed by Dr. Holland. CC: sob S: sob improving, no cp, palps, dizziness. Current Medications Albuterol/Ipratropium (Duoneb -) 1 amp NEB Q6H PRN PRN Reason: SHORT OF BREATH/WHEEZING Last Admin: 01/01/18 15:46 Dose: 1 amp Amlodipine Besylate (Norvasc -) 5 mg PO DAILY [facility] Last Admin: 01/02/18 10:06 Dose: 5 mg Aspirin (Asa -) 81 mg PO DAILY [facility] Last Admin: 01/02/18 10:08 Dose: Not Given Budesonide/Formoterol Fumarate (Symbicort 80/4.5mcg -) 2 puff IH BID [facility] Last Admin: 01/02/18 10:07 Dose: 2 puff Carvedilol (Coreg Cr -) 40 mg PO DAILY [facility] Last Admin: 01/02/18 10:07 Dose: 40 mg Enoxaparin Sodium (Lovenox -) 40 mg SQ DAILY [facility] Last Admin: 01/02/18 13:55 Dose: Not Given Multivitamins/Minerals/Vitamin C (Tab-A-Vit -) 1 tab PO DAILY [facility] Last Admin: 01/02/18 10:06 Dose: 1 tab Nicotine (Nicoderm Patch -) 21 mg TD DAILY [facility] Last Admin: 01/02/18 10:07 Dose: 21 mg Ondansetron HCl (Zofran -) 8 mg PO Q8H PRN PRN Reason: NAUSEA Prednisone (Deltasone -) 40 mg PO BID [facility] Tiotropium [place] (Spiriva -) 1 puff IH DAILY [facility] Last Admin: 01/02/18 10:06 Dose: 1 puff Valsartan (Diovan -) 320 mg PO DAILY [facility] Last Admin: 01/02/18 10:06 Dose: 320 mg Vital Signs - 24 hr 01/01/18 01/01/18 01/02/18 20:10 20:32 06:00 Temperature 98.1 F 97.5 F L Pulse Rate 73 68 Respiratory 19 20 Rate Blood Pressure 145/66 142/78 O2 Sat by Pulse 93 L 96 Oximetry (%) 01/02/18 01/02/18 10:05 14:00 Temperature 97.5 F L 98.1 F Pulse Rate 68 69 Respiratory 19 19 Rate Blood Pressure 141/75 141/61 O2 Sat by Pulse 91 L Oximetry (%) Intake & Output 12/31/17 01/01/18 01/02/18 01/03/18 07:59 07:59 07:59 07:59 Intake Total 1250 1050 200 100 Balance 1250 1050 200 100 Weight 145 lb 9 oz 146 lb 1 oz 145 lb 0.3 oz nad, calm jvd flat, neck supple + wheezes, diminished air movement. nl effort rrr nl s1, s2 no mrg + bs soft nt nd ext without e/c/c + dp/pt aaox3 no jaundice, diaphoresis CBC, BMP 01/02/18 06:00 01/02/18 06:00 ekg 12/29: sr with pac's. anterior q's (present on prior office ekg's). early r wave progression. tele: SR with occasional pvc's (polymorphic) prior tele strips reviewed. 28 beat run of wide complex tachycardia. echo 12/2017: nl lv/rv size/fn. 1+ mvp. mild-mod post mr/tr. no pericardial effusion. no mets on brain mri here. chest ct: infrahilar mass. moderately severe parenchymal copd changes. thyromegaly. images reviewed --> also calc cors. 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 SOB/hypoxia/copd - likely pulmonary etiology with copd exacerbation and new chest mass. - per pulm, deferring bronchoscopy/bx while with acute exacerbation of copd. has plan for further work up as outpatient. borderline abnormal troponin/hl - flat trend, likely 2/2 demand in setting of underlying cad. High suspicion for underlying cad: patient also with + risk factors, calcified cors on chest ct and ventricular ectopy/arrhythmia as mentioned below. - was having progressive cam last month and pmd had recommended he get stress testing but patient had wanted to defer for a month or two b/c of changes with his insurance. - In light of the high suspcion for cad, would recommend stress testing as an outpatient for risk stratification once respiratory status is more stable. - con't medical mgm't for cad with asa, statin, anti-anginals. vt - no further recurrence. - ischemic evaluation as mentioned above. - con't coreg - lyte repletion prn. - In light of history of mvp, can consider need for event monitor as outpatient at discretion of outpatient dairy helper. 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 - no signs of valvular decompensation + tobacco - cessation counseling htn - reasonably controlled on current regimen, con't. If bp trends up can consider uptitration. hyponatremia - mgm't per pmd.
[2018-01-02] MEDS: predniSONE 20 MG TABLET (UD) PO SCH (21:24)
[2018-01-03 06:23] VITALS: BP 147/77; PULSE 64; TEMP 97.6
[2018-01-03 08:23] LABS: ALBUMIN 2.3 g/dl (3.5-5.0); ALK PHOS 43 U/L (32-92); ANION GAP 7 (8-16); BILIRUBIN,TOTAL 0.5 mg/dl (0.2-1.0); BLOOD UREA NITROGEN 21 mg/dl (7-18); CALCIUM 7.6 mg/dl (8.4-10.2); CHLORIDE 98 mmol/L (98-107); CO2 27 mmol/L (22-28); GLUCOSE,RANDOM 102 mg/dl (74-106); POTASSIUM 3.8 mmol/L (3.5-5.1); SGOT/AST 33 U/L (10-42); SGPT/ALT 63 U/L (10-40); SODIUM 132 mmol/L (136-145); TOT PROT 5.1 g/dl (6.4-8.3)
[2018-01-03 08:44] LABS: CREATININE < 0.8 mg/dl (0.6-1.3)
[2018-01-03] MEDS ORDERED: PT OWN MED DRAWER 7, Y5N ONE (09:37)
[2018-01-03] MEDS: MULTIVITAMINS (DAILY MVI) TABLET (FP) PO SCH (09:45)
[2018-01-03] MEDS: ENOXAPARIN NA (PORCINE) 40 MG/0.4 ML DISP.SYRIN SQ SCH (09:45)
[2018-01-03] MEDS: predniSONE 20 MG TABLET (UD) PO SCH (09:45)
[2018-01-03] MEDS: VALSARTAN 160 MG TABLET (UD) PO SCH (09:46)
[2018-01-03] MEDS: ASPIRIN 81 MG CHEWABLE TABLETS PO SCH ×2 (09:48→10:31)
[2018-01-03] MEDS: CARVEDILOL PHOSPHATE CR 40 MG CAPSULE (FP) PO SCH (09:48)
[2018-01-03] MEDS: TIOTROPIUM BROMIDE 18 MCG CAPSULES IH SCH (09:48)
[2018-01-03] MEDS: amLODIPine BESYLATE 5 MG TABLET (FP) PO SCH (09:48)
[2018-01-03] MEDS: NICOTINE 21 MG/24 HOURS TOPICAL PATCH TD SCH (09:48)
[2018-01-03] MEDS: BUDESONIDE/FORMETEROL FUMARATE 80/4.5 mcg INHALER IH SCH (09:49)
--- NOTE | 2018-01-03 11:01 | DS ---
Physical Exam: SUBJECTIVE: Patient seen and examined OBJECTIVE: Vital Signs Period Temp Pulse Resp BP Sys/Pepper Pulse Ox Last 24 Hr 97.6 F-98.1 F 64-74 18-20 141-147/61-77 91-98 PHYSICAL EXAM GENERAL: The patient is awake, alert, and fully oriented, in no acute distress. HEAD: Normal with no signs of trauma. EYES: PERRL, extraocular movements intact, sclera anicteric, conjunctiva clear. ENT: Ears normal, nares patent, oropharynx clear without exudates, moist mucous membranes. NECK: Trachea midline, full range of motion, supple. LUNGS: Breath sounds equal, clear to auscultation bilaterally, no wheezes, no crackles, no accessory muscle use. HEART: Regular rate and rhythm, S1, S2 without murmur, rub or gallop. ABDOMEN: Soft, nontender, nondistended, normoactive bowel sounds, no guarding, no rebound, no hepatosplenomegaly, no masses. EXTREMITIES: 2+ pulses, warm, well-perfused, no edema. NEUROLOGICAL: Cranial nerves II through XII grossly intact. Normal speech, gait not observed. PSYCH: Normal mood, normal affect. SKIN: Warm, dry, normal turgor, no rashes or lesions noted. LABS Laboratory Results - last 24 hr 01/02/18 01/03/18 06:00 07:45 Sodium 132 L Potassium 3.8 Chloride 98 Carbon Dioxide 27 Anion Gap 7 L BUN 21 H Creatinine < 0.8 D Creat Clearance w eGFR > 60 Random Glucose 102 Calcium 7.6 L Total Bilirubin 0.5 D AST 33 D ALT 63 H Alkaline Phosphatase 43 Total Protein 5.1 L Albumin 2.3 L Lipase 195 HOSPITAL COURSE: Date of Admission:12/25/17 Date of Discharge: 01/03/18 Discharge Summary Reason For Visit: ACUTE EXACERBATION OF COPD Current Active Problems COPD with acute exacerbation (Acute) HTN (hypertension) (Acute) Hyperlipidemia (Acute) Lung mass (Acute) Condition: Stable - Instructions Diet, Activity, Other Instructions: Please return to the ED for any new, persistent, or worsening symptoms. Follow up with your PCP in 1 week Take new and regularly scheduled meds as directed Call Dr. Lee office this week for prompt follow up and scheduling of biopsy Complete steroid taper as directed Referrals: Master Kiser MD [Primary Care Provider] - Andrew Lee MD [Staff Physician] - Disposition: HOME - Home Medications Comprehensive Discharge Medication List: Ambulatory Orders Amlodipine Besylate [Norvasc -] 5 mg PO DAILY 12/25/17 Carvedilol Phosphate [Coreg Cr -] 40 mg PO DAILY 12/25/17 Fluticasone/Salmeterol [Advair 250-50 Diskus] 1 each IH ONCE 12/25/17 Pravastatin Sodium [Pravachol] 40 mg PO DAILY 12/25/17 Tiotropium Chase[place] [Spiriva] 1 inh IH DAILY 12/25/17 Valsartan 320 mg PO DAILY 12/25/17 Aspirin [ASA -] 81 mg PO DAILY #30 tab.chew 01/03/18 Prednisone 10 mg PO ASDIR #30 tablet 01/03/18 - Discharge Referral Referred to [facility] No
--- NOTE | 2018-01-03 13:33 | PN ---
Progress Note (short form) - Note Progress Note: PULMONARY COUGH AND SOB IMPROVED MRI BRAIN NO METS VSS/AFEBRILE ANICTERIC B/L DISTANT SOUNDS WITH SCATTERED RHONCHI S1S2 NSR BS+ NO EDEMA LABS/MEDS/IMAGES/NOTES REVIEWED Acute Hypoxic Respiratory Failure Acute COPD Exacerbation Lung Mass likely malignant HTN +Troponins likely Demand Ischemia/12 beat run wide complex tachycardia Hyponatremia Active Smoker - tapering prednisone - inhaled bronchodilators standing and PRN - will need bronchoscopy/biopsy when respiratory status stable, mass too central for CT guided needle biopsy - DVT prophylaxis - continue treatment as an outpatient/will need FOB/bx - patient will call for an appointment Brooklynn INGRAM MD Problem List - Problems (1) Lung mass Code(s): R91.8 - OTHER NONSPECIFIC ABNORMAL FINDING OF LUNG FIELD (2) HTN (hypertension) Code(s): I10 - ESSENTIAL (PRIMARY) HYPERTENSION (3) Hyperlipidemia Code(s): E78.5 - HYPERLIPIDEMIA, UNSPECIFIED
== END 2018-01-03 13:00 | disposition home or self-care (01) | DRG 190 ==
LOC: FER 20:44 → FM/S 23:51 → UNDOADMIN 12-26 00:14 → FM/S 12-26 00:14
PROVIDERS: ADMIT Internal Medicine; ATTEND Nurse Practitioner Family
DX: J44.1 Chronic obstructive pulmonary disease with (acute) exacerbation (principal); J96.01 Acute respiratory failure with hypoxia; E87.1 Hypo-osmolality and hyponatremia; R64 Cachexia; I24.8 Other forms of acute ischemic heart disease; I47.2 Ventricular tachycardia; E87.2 Acidosis; Z91.14 Patient's other noncompliance with medication regimen; I25.2 Old myocardial infarction; F17.210 Nicotine dependence, cigarettes, uncomplicated; F10.10 Alcohol abuse, uncomplicated; I10 Essential (primary) hypertension; E01.0 Iodine-deficiency related diffuse (endemic) goiter; R91.8 Other nonspecific abnormal finding of lung field; I34.1 Nonrheumatic mitral (valve) prolapse; I34.0 Nonrheumatic mitral (valve) insufficiency; Z68.23 Body mass index [BMI] 23.0-23.9, adult
CPT/HCPCS: 36415; 70553-TC; 71045-TC-FY; 71250-TC; 80048; 80053; 80076; 81003; 81015; 82150; 82550; 82962; 83605; 83690; 83735; 83880; 83930; 83935; 84100; 84300; 84443; 84484; 85025; 85610; 85730; 87040; 93005; 93306-TC; 94010; 94640; 94761; 97116-GP; 97161-GP; 99284-25; C1887

== ENCOUNTER 2018-01-25 11:32 | Day surgery (SDC) | payer OTHER ==
[2018-01-24 15:17] VITALS: BMI 19.0
--- NOTE | 2018-01-25 12:43 | HP ---
History & Physical Update - History History: No Change - Physical Physical: No Change - Assessment Assessment: No Change - Plan Plan: No Change (please see H&P from 01/07/18 for further details)
[2018-01-25] MEDS ORDERED: PROPOFOL 20 ML ONE ×2 (13:33)
[2018-01-25] MEDS ORDERED: ROCURONIUM BROMIDE 50 MG/5 ML VIAL ONE (13:33)
[2018-01-25] MEDS ORDERED: MIDAZOLAM HCL 2 MG/2 ML SINGLE DOSE VIAL ONE (13:34)
[2018-01-25] MEDS ORDERED: GLYCOPYRROLATE 0.2 MG/1 ML VIAL ONE (13:58)
[2018-01-25] MEDS ORDERED: NEOSTIGMINE METHYLSULFATE 0.5 MG/ML - 10 ML MDV ONE (13:58)
--- NOTE | 2018-01-25 14:10 | PROC ---
Procedure Note Procedure: BRONCHOSCOPY NOTE After discussing the risks and benefits of the procedure including bleeding and pneumothorax, informed consent was obtained. Pt was placed under general anesthesia and intubated with size 8.0 ETT by anesthesiologist. Storz video bronchoscope was passed via the ETT and the airways were examined down to the subsegmental level. The garcia was sharp, there were no endobronchial lesions noted in the right lung. In the left upper lobe bronchus, there was a white, smooth protruding mass obstructing the bronchus. Mass was biopsied with forceps and washed with saline. Samples to be sent for pathology, cytology and cultures. Minimal bleeding post biopsy, bronchoscope withdrawn and procedure terminated. Pre-op Dx: Lung Mass Post-op Dx: lung cancer Plan: - f/u cultures, cytology and pathology Jr Mejía MD
[2018-01-25] MEDS ORDERED: oxyCODONE HCL 5 MG TABLET PO PRN (14:23)
[2018-01-25] MEDS ORDERED: ONDANSETRON 4 MG/2 ML VIAL IVPUSH PRN (14:23)
[2018-01-25] MEDS ORDERED: LACTATED RINGERS SOLUTION 1,000 ML IV SCH (14:30)
[2018-01-25 14:46] VITALS: TEMP 97.6
[2018-01-25 17:09] VITALS: BP 121/67; PULSE 58
--- NOTE | 2018-01-28 15:02 | PATH ---
Surgical Pathology Report Patient Name: NOEMI ASHFORD [facility]. Rec. #: [id number] /Age/Gender: 1945 (Age: 72) / M Account: [id number] Location: [facility] SURGICAL Taken: 01/25/2018 Received: 01/26/2018 Reported: 01/28/2018 Physicians: Jr Mejía M.D. Specimen(s) Received LEFT UPPER LUNG BIOPSY Clinical History Lung mass Final Diagnosis LUNG, LEFT, UPPER LOBE, BIOPSY: PREDOMINANTLY NECROTIC MATERIAL/DEBRIS, RARE MARKEDLY INFLAMED BRONCHIAL EPITHELIUM, AND SCANT INFLAMMATORY CELLS. NO VIABLE TUMOR/CARCINOMA IDENTIFIED. Comment: Findings discussed with Dr. Mejía. See concurrent cytology ([id number]). Electronically Signed Nurys Carcamo M.D. Gross Description Received in formalin labeled "left upper lobe biopsy," is a 0.7 x 0.5 x 0.1 cm aggregate of busch soft tissue fragments. The formalin is filtered and the specimen is entirely submitted in one cassette. /01/26/2018 saudi/01/26/2018
--- NOTE | 2018-01-28 15:14 | PATH ---
Cytology Non-Gynecological Report Patient Name: NOEMI ASHFORD [facility]. Rec. #: [id number] /Age/Gender: 1945 (Age: 72) / M Account: [id number] Location: [facility] SURGICAL Taken: 01/25/2018 Received: 01/26/2018 Reported: 01/28/2018 Physicians: Jr Mejía M.D. Specimen(s) Received LEFT BRONCHIAL WASHINGS Clinical History Lung mass Final Diagnosis BRONCHIAL WASHING, LEFT, UPPER LOBE, FOR CYTOLOGY: SATISFACTORY FOR EVALUATION. ATYPICAL. RARE ATYPICAL CELLS IN A BACKGROUND OF REACTIVE BRONCHIAL CELLS, SCATTERED INFLAMMATORY CELLS AND ALVEOLAR MACROPHAGES PRESENT. Comment: Immunohistochemical stains performed at [place], [place] ([id number]) and interpreted at [facility] show weak non-specific staining for MOC-31 and TTF-1. See concurrent material ([id number]). Findings discussed with Dr. Mejía. Electronically Signed Nurys Carcamo M.D. Gross Description Approximately 30 cc of pink fluid received fixed in 50% alcohol. Two cytofunnels and one cellblock prepared.
== END 2018-01-25 16:45 | disposition home or self-care (01) ==
LOC: JASU-SURG 11:32
PROVIDERS: ATTEND Internal Medicine
PROC: 0BB88ZX Excision of Left Upper Lobe Bronchus, Via Natural or Artificial Opening Endoscopic, Diagnostic (ICD-10-PCS; principal; 2018-01-25 13:00)
DX: C34.12 Malignant neoplasm of upper lobe, left bronchus or lung (principal)
CPT/HCPCS: 87102; 87107; 87116; 87206; 87210; 88108; 88305-TC; 94760

== ENCOUNTER 2018-02-08 09:36 | Day surgery (SDC) | payer OTHER ==
[2018-02-07 08:08] VITALS: BMI 19.0
[2018-02-08 10:18] LABS: BASO % 0.6 % (0-2.0); EOS % 1.4 % (0-4.5); HEMATOCRIT 41.8 % (35.4-49); HEMOGLOBIN 14.2 GM/dL (11.7-16.9); LYMPH % 28.4 % (8-40); MCH 29.7 pg (25.7-33.7); MCHC 34.1 g/dl (32.0-35.9); MEAN CELL VOLUME 87.2 fl (80-96); MEAN PLT VOLUME 7.9 fl (7.5-11.1); MONO % 11.6 % (3.8-10.2); PLATELET COUNT 231 K/MM3 (134-434); RBC 4.79 M/mm3 (4.00-5.60); RDW 14.8 % (11.9-15.9); WHITE BLOOD COUNT 9.9 K/mm3 (4.0-10.0)
[2018-02-08 10:25] LABS: INR 1.03 (0.82-1.09); PROTHROMBIN TIME (PATIENT) 11.6 SEC (9.7-13.0)
[2018-02-08 10:49] VITALS: TEMP 96.6
[2018-02-08 12:23] VITALS: BP 146/87; PULSE 50
== END 2018-02-08 12:30 | disposition home or self-care (01) ==
LOC: JOR 09:36 → JRADIR 09:36
PROVIDERS: ATTEND Internal Medicine
PROC: 0BBG3ZX Excision of Left Upper Lung Lobe, Percutaneous Approach, Diagnostic (ICD-10-PCS; principal; 2018-02-08)
DX: D38.1 Neoplasm of uncertain behavior of trachea, bronchus and lung (principal); Z53.8 Procedure and treatment not carried out for other reasons; J98.11 Atelectasis
CPT/HCPCS: 32405; 36415; 71250-TC; 77012-TC; 85025; 85610

== ENCOUNTER 2018-03-11 04:59 | Day surgery (SDC) | payer OTHER ==
[2018-03-10 16:48] VITALS: BMI 19.5
[2018-03-11] MEDS ORDERED: MIDAZOLAM HCL 2 MG/2 ML SINGLE DOSE VIAL ONE (12:25)
[2018-03-11] MEDS ORDERED: PROPOFOL 20 ML ONE (12:31)
[2018-03-11] MEDS ORDERED: ROCURONIUM BROMIDE 50 MG/5 ML VIAL ONE (12:31)
[2018-03-11] MEDS ORDERED: LIDOCAINE HCL/PF 2% SDV 5ML VIAL ONE (12:31)
[2018-03-11] MEDS ORDERED: GLYCOPYRROLATE 0.2 MG/1 ML VIAL ONE ×2 (12:49→13:18)
[2018-03-11] MEDS ORDERED: DEXAMETHASONE SOD PHOSPHATE 4 MG/1 ML VIAL ONE (13:12)
[2018-03-11] MEDS ORDERED: NEOSTIGMINE METHYLSULFATE 0.5 MG/ML - 10 ML MDV ONE (13:18)
[2018-03-11] MEDS ORDERED: LACTATED RINGERS SOLUTION 1,000 ML IV SCH ×2 (13:30→13:45)
[2018-03-11] MEDS ORDERED: oxyCODONE HCL 5 MG TABLET PO PRN (13:40)
[2018-03-11] MEDS ORDERED: ONDANSETRON 4 MG/2 ML VIAL IVPUSH PRN (13:40)
[2018-03-11 15:08] VITALS: BP 136/86; PULSE 68
[2018-03-11] MEDS ORDERED: oxyCODONE HCL 5 MG TABLET ONE (15:08)
[2018-03-11] MEDS ORDERED: oxyCODONE HCL 5 MG TABLET PO ONE (15:10)
[2018-03-11 15:27] VITALS: TEMP 97.8
--- NOTE | 2018-03-11 16:18 | OP ---
DATE OF OPERATION: 03/11/2018 SURGICAL ATTENDING: Joy Frausto MD PREOPERATIVE DIAGNOSIS: Base of tongue mass. POSTOPERATIVE DIAGNOSIS: Base of tongue mass. ANESTHESIA: General endotracheal. PROCEDURE: 1. Direct laryngoscopy with biopsy of right base of tongue mass and left tonsil. 2. Rigid esophagoscopy. DESCRIPTION OF PROCEDURE: The patient was taken into the operating room, placed in a supine position, endotracheally intubated. The eyes were protected, and a head wrap was placed. Tooth guards were placed. The oral cavity was then examined carefully with direct light and 2 tongue blades. A right base of tongue mass was noted which was blanching on the right lateral aspect of the base of the tongue but not ulcerated or bleeding. The mass was palpable and extended into the base of the tongue posteriorly, but on the surface of the tongue, there was no visible lesion. It was not fixed but mobile. A somewhat prominent left tonsillar nodule was also identified with no ulceration or suspicious features. Direct laryngoscopy was then performed, observing all aspects of the upper area of the digestive tract. No lesions were seen. Rigid esophagoscopy was then performed of the cervical esophagus, and no lesions were seen. Using Bovie electrocautery, the left tonsillar nodule was biopsied, and hemostasis was achieved. This was sent for permanent. The right base of tongue mass was exposed with a mouth gag, tooth guards, and a silk stitch in the tongue. Biopsies were taken superficially with a cupped forceps and deeply with a 15 blade. These were sent for frozen and permanent analysis. Hemostasis was achieved with electrocautery and 0 Vicryl sutures. Note that a throat pack was placed and removed before the end of the case. Hemostasis was observed. The tongue stitch was removed. Throat pack was removed. Patient was then extubated, awakened, and taken to Recovery in stable condition. Dr. Frausto, the attending surgeon, was present throughout the entire procedure. JOY FRAUSTO M.D. [id number]
--- NOTE | 2018-03-16 14:00 | PATH ---
Surgical Pathology Report Patient Name: NOEMI ASHFORD [facility]. Rec. #: [id number] /Age/Gender: 1945 (Age: 73) / M Account: [id number] Location: [facility] SURGICAL Taken: 03/11/2018 Received: 03/11/2018 Reported: 03/16/2018 Physicians: Nir Arrington M.D. Specimen(s) Received A: RIGHT BASE OF TONGUE MASS B: LEFT TONSIL BIOPSY C: RIGHT BASE OF TONGUE MASS Clinical History Tongue mass Intraoperative Consult Diagnosis Right base of tongue mass, biopsy (FS): Positive for malignancy. Squamous cell carcinoma. Dr. Barry. Final Diagnosis A. BASE OF TONGUE, MASS, RIGHT, BIOPSY (FS): INVASIVE SQUAMOUS CELL CARCINOMA, MODERATELY DIFFERENTIATED, KERATINIZING TYPE. B. TONSIL, LEFT, BIOPSY: LYMPHOID TISSUE AND SQUAMOUS EPITHELIUM CONSISTENT WITH TONSILS. NO DYSPLASIA OR CARCINOMA IDENTIFIED. C. BASE OF TONGUE, MASS, RIGHT, BIOPSY: INVASIVE SQUAMOUS CELL CARCINOMA, MODERATELY DIFFERENTIATED, KERATINIZING TYPE, INVOLVING SKELETAL MUSCLE AND ADIPOSE TISSUE. Comment: HPV in situ hybridization performed and interpreted at [place], [place] ([id number]) on part A, for low risk (03/14) and high risk (16, 18, 31, 33) subtypes are negative. Immunohistochemical stain performed at [place], [place] ([id number]) and interpreted at [facility] show p16 is negative (weak focal staining). Case seen interdepartmentally. Electronically Signed Nurys Carcamo M.D. Gross Description A. Received fresh for intraoperative consultation labeled "right base of tongue mass" are two pink-busch soft tissue measuring 0.5 and 0.4 cm in greatest dimension. Touch preparation is done. Specimen is entirely submitted for frozen section analysis. B. Received in formalin labeled "left tonsil biopsy" are 3 fragments of white-busch tissue ranging in size from 0.3-0.6 cm in greatest dimension. Entire specimen submitted in one cassette. C. Received in formalin labeled "right base of tongue mass" are 4 fragments of white busch tissue ranging in size from 0.5 x 0.4 to 1 x 0.3. Entire specimen submitted in one cassette. [facility] [place] suman/03/11/2018
== END 2018-03-11 16:35 | disposition home or self-care (01) ==
LOC: JASU-SURG 04:59
PROVIDERS: ATTEND Surgery
PROC: 0DJ08ZZ Inspection of Upper Intestinal Tract, Via Natural or Artificial Opening Endoscopic (ICD-10-PCS; 2018-03-11)
PROC: 0CBM8ZX Excision of Pharynx, Via Natural or Artificial Opening Endoscopic, Diagnostic (ICD-10-PCS; principal; 2018-03-11 12:00)
DX: C01 Malignant neoplasm of base of tongue (principal)
CPT/HCPCS: 88305-TC; 88331-TC; 88342-TC; 94760

== ENCOUNTER 2018-03-16 11:38 | Emergency (ER) | payer OTHER ==
--- NOTE | 2018-03-16 12:35 | PDOC ---
History of Present Illness - General Chief Complaint: Blood Pressure Problem Stated Complaint: HYPOTENTION Time Seen by Provider: 03/16/18 11:45 - History of Present Illness Initial Comments: 03/16/18 16:22 Chief complaint: Low blood pressure History of present illness: Patient is usually hypertensive, taking antihypertensive medication, checked his blood pressure this morning at home and found it to be low, in the 90/60 range. He was mildly lightheaded but had no other symptoms. He has had a recent tongue biopsy and his oral intake of food and fluid has been minimal due to discomfort from the biopsy. Review of systems: Denies fever/chills, chest pain, shortness of breath, abdominal pain, nausea, vomiting, diarrhea. Remainder systems reviewed and found to be negative. The patient is urinating adequately Past medical history: Patient is a smoker with a recent exacerbation of COPD and a lung tumor on the left diagnosed on CT. He is scheduled for bronchoscopy and biopsy. He had a recent tongue biopsy for possible metastasis. High blood pressure, elevated cholesterol, COPD. Medications: Amlodipine, Coreg, pravastatin, Symbicort, Spiriva, albuterol, baby aspirin Social history: Notable for smoking Family history: Reviewed and noncontributory Physical exam: Alert and oriented mildly cachectic but no acute distress cheerful and cooperative Afebrile, vital signs normal except for blood pressure in the range of 90/60. He is mildly orthostatic. PERRLA, fundi benign, ENT clear Neck supple without bruit mass or nodes Lungs clear full breath sounds bilaterally CV regular without murmur rub or gallop pulses full and symmetric no JVD or edema no bruits Abdomen benign Neurological intact Patient does not appear to be symptomatically orthostatic Impression: Low blood pressure and normally hypertensive individual, recently decreased oral intake, no vomiting or diarrhea Plan: CBC and chemistries, IV hydration, monitoring. Past History - Past Medical History Allergies/Adverse Reactions: Allergies Allergy/AdvReac Type Severity Reaction Status Date / Time levofloxacin [From Levaquin] Allergy Unknown Verified 03/16/18 14:49 Home Medications: Ambulatory Orders Albuterol Sulfate [Ventolin -] 4 mg PO BID 03/16/18 Amlodipine Besylate 5 mg PO DAILY 03/16/18 Aspirin [ASA -] 81 mg PO DAILY 03/16/18 Budesonide/Formeterol Fumarate [SYMBICORT 160/4.5mcg -] 2 inh PO BID PRN Carvedilol Phosphate [Carvedilol ER] 40 mg PO DAILY 03/16/18 Oxycodone HCl 5 mg PO QID PRN 03/16/18 Pravastatin Sodium [Pravachol (Nf)] 40 mg PO HS 03/16/18 Tiotropium Sanderson [Spiriva] 1 inh IH DAILY 03/16/18 Anemia: No Asthma: No Cancer: Yes (LUNG CA LEFT) Cardiac Disorders: Yes (AK 2001) CVA: No COPD: Yes (emphysena) CHF: No Dementia: No Diabetes: No GI Disorders: No Disorders: No HTN: Yes Hypercholesterolemia: Yes Liver Disease: No Seizures: No Thyroid Disease: No - Surgical History Lung Surgery: (bronchoscopy) Orthopedic Surgery: Yes (THUMB SX) - Suicide/Smoking/Psychosocial Hx Smoking History: Former smoker Have you smoked in the past 12 months: Yes Number of Cigarettes Smoked Daily: 10 If you are a former smoker, when did you quit?: DECEMBER 2017 'Breaking Loose' booklet given: 03/10/18 Hx Alcohol Use: Yes (SEP 2017) Drug/Substance Use Hx: No Substance Use Type: Alcohol Hx Substance Use Treatment: No ED Treatment Course - LABORATORY CBC & Chemistry Diagram: 03/16/18 12:55 03/16/18 12:55 Medical Decision Making - Medical Decision Making 03/16/18 16:28 Patient's blood pressure is improved, and he feels much better, no orthostatic symptoms, no lightheadedness, ambulatory without difficulty. Exam remains unremarkable. Increase hydration, monitoring blood pressure at home, follow-up as needed. Fully ambulatory and in no distress upon discharge with his to follow-up as directed. *DC/Admit/Observation/Transfer Diagnosis at time of Disposition: Dehydration - Discharge Dispostion Disposition: HOME Condition at time of disposition: Improved Decision to Admit order: No - Referrals - Patient Instructions Printed Discharge Instructions: DI for Dehydration -- Adult Additional Instructions: Do not take your blood pressure medicine until your pressure is rechecked tomorrow and restarted by your primary physician. - Post Discharge Activity
[2018-03-16] MEDS ORDERED: SODIUM CHLORIDE 1,000 ML IV STA ×2 (12:36→14:32)
[2018-03-16 13:18] LABS: BASO % 0.5 % (0-2.0); EOS % 7.9 % (0-4.5); HEMOGLOBIN 12.8 GM/dl (11.7-16.9); LYMPH % 23.7 % (8-40); MCH 27.3 pg (25.7-33.7); MCHC 32.7 g/dl (32.0-35.9); MEAN CELL VOLUME 83.5 fl (80-96); MEAN PLT VOLUME 7.6 fl (7.5-11.1); NEUT % 54.9 % (42.8-82.8); PLATELET COUNT 281 K/MM3 (134-434); RBC 4.67 M/mm3 (4.00-5.60); RDW 13.5 % (11.9-15.9); WHITE BLOOD COUNT 7.8 K/mm3 (4.0-10.8)
[2018-03-16 13:30] VITALS: TEMP 98.2
[2018-03-16 13:38] VITALS: BMI 20.7
[2018-03-16 13:40] LABS: ALBUMIN 3.1 g/dl (3.5-5.0); ALK PHOS 48 U/L (32-92); ANION GAP 9 (8-16); BILIRUBIN,TOTAL 0.6 mg/dl (0.2-1.0); BLOOD UREA NITROGEN 23 mg/dl (7-18); CALCIUM 8.9 mg/dl (8.4-10.2); CHLORIDE 96 mmol/L (98-107); CO2 27 mmol/L (22-28); CREATININE 0.9 mg/dl (0.6-1.3); GLUCOSE,RANDOM 102 mg/dl (74-106); POTASSIUM 4.2 mmol/L (3.5-5.1); SGOT/AST 17 U/L (10-42); SGPT/ALT 14 U/L (10-40); SODIUM 132 mmol/L (136-145); TOT PROT 6.7 g/dl (6.4-8.3)
[2018-03-16 14:31] VITALS: BP 123/63; PULSE 59
--- NOTE | 2018-03-17 11:13 | EKG ---
Test Reason : Blood Pressure : / mmHG Vent. Rate : 058 BPM Atrial Rate : 058 BPM P-R Int : 166 ms QRS Dur : 096 ms QT Int : 434 ms P-R-T Axes : 058 075 078 degrees QTc Int : 426 ms SINUS BRADYCARDIA OTHERWISE NORMAL ECG WHEN COMPARED WITH ECG OF 10-MAR-2018 16:36, NO SIGNIFICANT CHANGE WAS FOUND Confirmed by VINCENT LEVI MD ([id number]) on 03/17/2018 11:13:33 AM Referred By: SEBAS NANCE Confirmed By:VINCENT LEVI MD
== END 2018-03-16 15:56 | disposition home or self-care (01) ==
LOC: FER 11:38
PROC: 3E0337Z Introduction of Electrolytic and Water Balance Substance into Peripheral Vein, Percutaneous Approach (ICD-10-PCS; principal; 2018-03-16)
DX: E86.0 Dehydration (principal); Z87.891 Personal history of nicotine dependence; I10 Essential (primary) hypertension; Z85.118 Personal history of other malignant neoplasm of bronchus and lung
CPT/HCPCS: 36415; 80053; 82550; 84484; 85025; 93005; 99282-25; J7030